=== PATIENT | male | born 1955 | race Caucasian/White ===

== ENCOUNTER → 2020-01-28 17:17 | Outpatient (CLI) | payer BC, SELFPAY ==
[2019-12-06 14:24] VITALS: BMI 40.4
== END ==
PROVIDERS: PCP Family Medicine; Referring Provider Family Medicine; Visit Provider Family Medicine
DX: Z11.59 Encounter for screening for other viral diseases (principal)
CPT/HCPCS: 87635; C9803; U0003

== ENCOUNTER 2021-11-27 12:25 | Day surgery (SDC) | payer MEDICARE, OTHER, SELFPAY ==
[2021-11-27] MEDS: Lactated Ringers 1,000 ML 15 ML IV (12:45)
[2021-11-27 12:59] VITALS: BP 136/79; PULSE 54; RESP 19; TEMP 36.6; O2SAT 95; BMI 40.0
--- NOTE | 2021-11-27 13:05 | HP.PCM_ITS ---
HPI - General General Date of Admission: 11/27/21 Date of Service: 11/27/21 Chief Complaint: Screening colonoscopy HPI Narrative AUDRA HAINES, is a 66 M who presents today for screening colonoscopy. He has a past medical history of acute on chronic diverticulitis, sleep apnea, obesity, BPH, diabetes. He arrives here for a colonoscopy. He is not having any prior bowels. He does not have any abdominal pain. He is not any cramping. He denies any chest pain or shortness of breath. He has normal bowel movement every day. All other 16 review of systems are negative except as pertinent positive mentioned HPI. [facility] Medical History Afib Arthritis Back pain Cancer Cardiology follow-up encounter CPAP (continuous positive airway pressure) dependence Diabetes Dietary restriction history of a heart ablation History of cardioversion History of diverticulitis History of echocardiogram History of gout History of stress test Hypertension Loss of hearing Non-smoker Personal history of other malignant neoplasm of kidney Pulmonary nodule less than 1 cm in diameter with low risk for malignant neoplasm Pure hypercholesterolemia, unspecified SOB (shortness of breath) Wears dentures Wears glasses Home Medications doxazosin 4 mg tablet 4 mg PO QHS 09/15/15 [History Last Taken 09/14/15 22:00] glimepiride 1 mg tablet 1 mg PO DAILY 09/15/15 [History Last Taken 09/12/15 1 MG] multivitamin 1 ea PO DAILY 09/15/15 [History Last Taken 09/15/15 08:00] tramadol 50 mg tablet 100 mg PO Q6H PRN PRN Pain 09/15/15 [History Last Taken Unknown] amlodipine 5 mg-benazepril 20 mg capsule 1 cap PO DAILY 12/06/19 [History Last Taken 11/27/21] apixaban 5 mg tablet 5 mg PO BID 12/06/19 [History Last Taken 11/23/21] blood sugar diagnostic #10 ea 12/06/19 [History Last Taken Unknown] metoprolol tartrate 50 mg tablet 50 ea PO BID 12/06/19 [History Last Taken 11/27/21] metformin 500 mg tablet 500 mg PO BID 08/31/21 [History Last Taken Unknown] albuterol 90 mcg/actuation aerosol inhaler 90 mcg inhalation PRN PRN SOB 11/20/21 [History Last Taken Unknown] loratadine 10 mg tablet (Claritin) 10 mg PO DAILY 11/20/21 [History Last Taken Unknown] Allergy/AdvReac Type Severity Reaction Status Date / Time ciprofloxacin [From Cipro] Allergy Severe Other Verified 11/27/21 12:57 ciprofloxacin HCl Allergy Severe Other Verified 11/27/21 12:57 [From Cipro] clarithromycin [From Biaxin] Allergy Severe Other Verified 11/27/21 12:57 lisinopril Allergy Severe Other Verified 11/27/21 12:57 metronidazole Allergy Severe Other Verified 11/27/21 12:57 Family History (Updated 08/31/21 @ 13:46 by Coreen Bailey) Mother Hypertension Father Leukemia Sister Multiple sclerosis Surgical History History of colonoscopy History of left nephrectomy History of partial adrenalectomy History of prior ablation treatment History of transurethral resection of prostate Social History Smoking Status: Never smoker alcohol intake: never ROS Review of Systems ROS Unobtainable: other Constitutional Constitutional: Denies fatigue, fever(s), poor appetite, weight gain or weight loss ENT HEENT: Denies mouth lesions Cardiovascular Cardiovascular: Denies abdominal bloating, abdominal edema or abdominal pain Respiratory/Chest Respiratory/Chest: Denies change in mental status, change in phlegm color, chest congestion or chest tightness Gastrointestinal Gastrointestinal: Denies belching, bloating, change in bowel habits, change in stool character, chewing difficulty, coffee ground emesis, constipation, cramping, diarrhea, dyspepsia, dysphagia, early satiety, excessive flatus, fecal incontinence, heartburn, hematemesis, hematochezia, hemorrhoids, loose stools, melena, nausea, odynophagia, rectal bleeding, tenesmus, vomiting or weight changes Genitourinary Genitourinary: Denies abdominal discomfort, burning urination or itching Musculoskeletal Musculoskeletal: Reports as per HPI; Denies muscle weakness or myalgias Integumentary Integumentary: Denies jaundice Neurologic Neurologic: Denies lack of coordination or weakness Psychiatric Psychiatric: Denies confusion, depression, memory loss, mood swings, paranoia or suicidal ideation Endocrine Endocrinology: Denies systems reviewed and no addt'l complaints, except as documented Hematologic/Lymphatic Hematologic/Lymphatic: Denies anemia, easy bleeding, easy bruising or lymphadenopathy Allergic/Immunologic Allergic/Immunologic: Denies systems reviewed and no addt'l complaints, except as documented Vital Signs Vital Signs Vital Signs: 11/27/21 12:59 11/27/21 12:59 Temperature 97.8 F Temperature Source Temporal Pulse Rate 54 L Respiratory Rate 19 H Respiratory Pattern Normal Blood Pressure 136/79 H Blood Pressure Mean 98 Blood Pressure Source Monitor Blood Pressure Position Semi-Fowlers Blood Pressure Location Right Arm Pulse Ox 95 Oxygen Delivery Method Room Air Weight Weight: 303 lb 9.224 oz Body Mass Index (BMI) 40.0 Physical Exam Const alert, oriented x3, no apparent distress, healthy appearing and well nourished General Appearance: cooperative, comfortable, well kempt and well developed Orientation / Consciousness: awake and oriented to person HEENT Head and Scalp: normocephalic and atraumatic Face and Sinus: normal facial exam Mouth: oral and palatal mucosa normal Eyes General Eye: normal appearance of both eyes Neck full ROM Lymph Lymphatic: no lymphadenopathy noted Chest inspection of chest normal Resp normal respiratory effort and no use of accessory muscles Cardio regular rate and regular rhythm GI normal to inspection, nondistended, normoactive bowel sounds, soft to palpation, non-tender, non-distended and no masses Auscultation: normoactive bowel sounds Palpation: soft Percussion: normal to percussion Rectal Exam: visual inspection normal and normal sphincter tone no CVA tenderness Back/Spine no CVA tenderness and normal ROM Extremity normal to inspection Peripheral Pulses: Yes pulses 2+ throughout Skin no rashes or lesions noted General Skin Exam: no breakdown, elasticity normal and turgor normal Neuro oriented x3 Motor Exam: strength 5/5 throughout Psych mental status grossly normal Appearance: grossly normal Attitude: calm Activity / Motor Behavior: appropriate eye contact Speech: normal speech Thought Process: normal thought process Thought Content: normal thought content Attention / Concentration: attention grossly intact Memory / Cognition: memory grossly intact Insight: insight good Judgement: judgement good Assessment & Plan Assessment/Plan (1) Encounter for screening for malignant neoplasm of colon: PLAN: He was explained alternatives, risk, benefits including not withstanding bleeding, infection, sepsis, perforation, need for emergent surgery . He will have an ASA of 3.
--- NOTE | 2021-11-27 13:30 | COLBX_PTH ---
PATIENT: AUDRA HAINES LOC: EN U#:[id number] AGE/SX: 66/M ROOM: RE11/27/[address]: Dr. Jayden Andersen DO : 1955 BED: DIS: 11/27/2021 SPEC #: [id number] RECD: 11/27/21 15:16 STATUS: ELISE LEEKendra #: [id number] OUMOU: 11/27/21 13:[address]: Jayden Andersen DEPT: SURGICAL PATHOLOGY RECD BY: Orin Benjamin ENTERED: 11/28/21 07:07 SP TYPE: COLON BX OTHR DR: Dr. Delbert Castro DO Tissues: A - Sigmoid colon biopsy B - Cecum, NOS C - SPLENIC FLEXURE Procedures: Surgery Specimen Level IV HEADER OPERATION: Colonoscopy ? open access (MAC) PRE-OP DIAGNOSIS: Screening TISSUE SUBMITTED: A - Sigmoid colon polyp x3, B - Cecal biopsy colitis, C - Splenic flexure polyps x2 MICROSCOPIC DIAGNOSIS A. Sigmoid colon polyp, biopsy: Fragments of tubular adenoma. B. Cecum, biopsy: Focal acute colitis. C. Colonic polyp at splenic flexure, biopsy: Tubular adenoma. AM:maylin 11/29/2021 MICROSCOPIC DESCRIPTION Slides are reviewed. GROSS DESCRIPTION A - Received in fixative is one container labeled with the patient's name and designated sigmoid colon polyps x3. The specimen consists of multiple irregular fragments of light simms soft tissue that in aggregate measure 1.5 x 1 x 0.3 cm. The specimen is totally submitted in one cassette. B - Received in fixative is one container labeled with the patient's name and designated cecal biopsy colitis. The specimen consists of three irregular fragments of light simms soft tissue that in aggregate measure 1 x 0.2 x 0.1 cm. The specimen is totally submitted in one cassette. C - Received in fixative is one container labeled with the patient's name and designated splenic flexure polyp x2. The specimen consists of two irregular fragments of light simms soft tissue that in aggregate measure 0.6 x 0.3 x 0.1 cm. The specimen is totally submitted in one cassette. / BRADLY:maylin 11/28/2021 TC:2 CPT: 85831 x3
[2021-11-27 14:25] VITALS: BP 104/66; BP 136/79; PULSE 57; RESP 14; TEMP 36.8; O2SAT 91
--- NOTE | 2021-11-27 14:25 | OP.CCLET_ITS ---
01/31/2022 Delbert Castro Re : Colonoscopy procedure for Darian Willson Cindyr Gloria This procedure was performed on Saturday, November 27, 2021. My impressions and recommendations are as follows: Impressions : - One 5 mm polyp in the sigmoid colon at the splenic flexure in the transverse colon, removed with a hot snare. Resected and retrieved. - Congested mucosa in the cecum. Biopsied. Recommendations : - Discharge patient to home. - Resume previous diet. - Continue present medications. - Await pathology results. - Repeat colonoscopy in 3 years for surveillance. My findings are described in the full procedure note, which is enclosed. If I can be of further assistance, please feel free to contact me at . Sincerely, Jayden Friend, 11/27/2021 2:24:46 PM This report has been signed electronically.
--- NOTE | 2021-11-27 14:25 | OP.COLON_ITS ---
Patient Name: Darian Willson Procedure Date: 11/27/2021 1:49 PM Date of : 1955 Age: 66 Procedure: Colonoscopy Indications: Follow-up for history of adenomatous polyps in the colon Providers: Jayden Andersen DO Medicines: Monitored Anesthesia Care Patient Profile: This is a 66 year old male. Refer to note in patient chart for documentation of history and physical. Last Colonoscopy: 3 years ago. Complications: No immediate complications. Procedure: Pre-Anesthesia Assessment: - Prior to the procedure, a History and Physical was performed, and patient medications and allergies were reviewed. The patient is competent. The risks and benefits of the procedure and the sedation options and risks were discussed with the patient. All questions were answered and informed consent was obtained. Patient identification and proposed procedure were verified by the physician in the pre-procedure area. Mental Status Examination: alert and oriented. Airway Examination: normal oropharyngeal airway and neck mobility. Respiratory Examination: clear to auscultation. CV Examination: normal. Prophylactic Antibiotics: The patient does not require prophylactic antibiotics. Prior Anticoagulants: The patient has taken no previous anticoagulant or antiplatelet agents. ASA Grade Assessment: II - A patient with mild systemic disease. After reviewing the risks and benefits, the patient was deemed in satisfactory condition to undergo the procedure. The anesthesia plan was to use moderate sedation / analgesia (conscious sedation). Immediately prior to administration of medications, the patient was re-assessed for adequacy to receive sedatives. The heart rate, respiratory rate, oxygen saturations, blood pressure, adequacy of pulmonary ventilation, and response to care were monitored throughout the procedure. The physical status of the patient was re-assessed after the procedure. After I obtained informed consent, the scope was passed under direct vision. Throughout the procedure, the patient's blood pressure, pulse, and oxygen saturations were monitored continuously. The Colonoscope was introduced through the anus and advanced to the cecum, identified by appendiceal orifice and ileocecal valve. The colonoscopy was performed without difficulty. The patient tolerated the procedure well. The quality of the bowel preparation was adequate. Scope In: 1:59:35 PM Scope Withdrawal Time 0 hours 7 minutes 13 seconds Scope Out: 2:18:38 PM Total Procedure Duration Time 0 hours 19 minutes 3 seconds Findings: The perianal and digital rectal examinations were normal. A 5 mm polyp was found in the sigmoid colon splenic flexure transverse colon. The polyp was sessile. The polyp was removed with a hot snare. Resection and retrieval were complete. Verification of patient identification for the specimen was done. Estimated blood loss was minimal. An area of mildly congested mucosa was found in the cecum. Biopsies were taken with a cold forceps for histology. Verification of patient identification for the specimen was done. Estimated blood loss was minimal. Impression: - One 5 mm polyp in the sigmoid colon at the splenic flexure in the transverse colon, removed with a hot snare. Resected and retrieved. - Congested mucosa in the cecum. Biopsied. Recommendation: - Discharge patient to home. - Resume previous diet. - Continue present medications. - Await pathology results. - Repeat colonoscopy in 3 years for surveillance. Procedure Code(s): --- Professional --- 17418, Colonoscopy, flexible; with removal of tumor(s), polyp(s), or other lesion(s) by snare technique 64436, 59, Colonoscopy, flexible; with biopsy, single or multiple CPT copyright 2017 [employer]. All rights reserved. The codes documented in this report are preliminary and upon business intelligence analyst review may be revised to meet current compliance requirements. Jayden Andersen DO 11/27/2021 2:24:46 PM This report has been signed electronically. Number of Addenda: 1 Note Initiated On: 11/27/2021 1:49 PM Addendum Number: 1 Addendum Date: 01/31/2022 6:35:33 AM MAC was used as sedation for this procedure. Jayden Andersen DO 01/31/2022 6:35:37 AM This report has been signed electronically.
[2021-11-27 14:30] VITALS: BP 107/68; BP 136/79; PULSE 54; RESP 16; O2SAT 96
[2021-11-27 14:35] VITALS: BP 115/71; BP 136/79; PULSE 54; RESP 106; O2SAT 97
[2021-11-27 14:40] VITALS: BP 100/69; BP 136/79; PULSE 52; RESP 16; TEMP 36.7; O2SAT 94
[2021-11-27 14:57] VITALS: BP 136/79
[2021-11-27 15:16] LABS: Bedside Glucose 163 mg/dL (74-106)
== END 2021-11-27 14:58 | disposition home or self-care (01) ==
LOC: EN 12:32 → AC 12:33
PROVIDERS: PCP Family Medicine; Referring Provider Family Medicine; Visit Provider Internal Medicine Gastroenterology
PROC: 0DJD8ZZ Inspection of Lower Intestinal Tract, Via Natural or Artificial Opening Endoscopic (ICD-10-PCS; CPT 45378; principal; 2021-11-27 13:25)
DX: Z12.11 Encounter for screening for malignant neoplasm of colon (principal); E11.9 Type 2 diabetes mellitus without complications; K52.9 Noninfective gastroenteritis and colitis, unspecified; D12.3 Benign neoplasm of transverse colon; D12.5 Benign neoplasm of sigmoid colon; K63.89 Other specified diseases of intestine; I10 Essential (primary) hypertension; G47.30 Sleep apnea, unspecified; Z79.84 Long term (current) use of oral hypoglycemic drugs; Z79.899 Other long term (current) drug therapy
CPT/HCPCS: 45380; 45385; 82962; 88305; J7120; J2405

== ENCOUNTER 2021-12-07 15:54 | Emergency (ER) | payer MEDICARE, OTHER, SELFPAY ==
[2021-12-07 15:56] VITALS: BP 166/93; PULSE 66; RESP 14; TEMP 35.7; O2SAT 97; BMI 41.1
[2021-12-07 16:11] VITALS: BP 147/75; PULSE 61; RESP 16; O2SAT 96
--- NOTE | 2021-12-07 16:11 | EKG12_ITS ---
Test Reason : SOB Blood Pressure : / mmHG Vent. Rate : 061 BPM Atrial Rate : 061 BPM P-R Int : 266 ms QRS Dur : 158 ms QT Int : 462 ms P-R-T Axes : 094 102 032 degrees QTc Int : 465 ms Suspect arm lead reversal, interpretation assumes no reversal Sinus rhythm with 1st degree A-V block with occasional Premature ventricular complexes Right bundle branch block Abnormal ECG Confirmed by ISACC PICHARDO, ZACK ([id number]), state editor FAITH LIZAMA ([id number]) on 12/10/2021 10:17:14 AM Referred By: Confirmed By:ZACK DEXTER MD
--- NOTE | 2021-12-07 16:25 | EDS_ITS ---
HPI History of Present Illness Chief Complaint: Seizure Detail of Chief Complaint: Patient had a syncopal episode not a seizure Informant: patient and spouse/S.O. Onset/Context/Timing Onset: Today (Prior to presentation) Context: Sudden Onset Timing: Intermittent Quality: Unresponsiveness with snoring and myoclonic jerk left upper extremity Location: Patient's vehicle Current Severity: Sweaty otherwise nothing Maximum Severity: Single episode 4 minutes with no postictal state Worsened by: Per HPI narrative Relieved by: Nothing Associated Symptoms Associated Symptoms: Nausea, feeling warm, diaphoretic Narrative Narrative: Patient is a 66-year-old male with history of obstructive sleep apnea, hypertension, diabetes, hypercholesterolemia, atrial fibrillation status post ablation who presents after reported seizure activity. After speaking with spouse it was determined that he had no abnormal motor activity. Patient recalls developing back pain. He states he did not feel well. He states he began to walk towards the truck. He got into the passenger side of the truck. His spouse packed the merchandise that she purchased into the back of the vehicle. She states his head then became limp he had snoring breathing. She thought he may be hypoglycemic since he is diabetic. She went to hand him lemonade. Apparently his left arm moved and spilled the lemonade. Patient denies headache, biting his tongue, incontinence of urine or stool. He has no known history of seizures. According to spouse he was not postictal. Patient does remember feeling warm and becoming very sweaty. Spouse does not recall whether he was pale or not. His vision became black. He does not recall anything else. Prior similar symptoms: No Recent Illness/Hospitalization: No PFSH PFSH Medical History Afib Arthritis Back pain Cancer Cardiology follow-up encounter CPAP (continuous positive airway pressure) dependence Diabetes Dietary restriction history of a heart ablation History of cardioversion History of diverticulitis History of echocardiogram History of gout History of stress test Hypertension Loss of hearing Non-smoker Personal history of other malignant neoplasm of kidney Pulmonary nodule less than 1 cm in diameter with low risk for malignant neoplasm Pure hypercholesterolemia, unspecified SOB (shortness of breath) Wears dentures Wears glasses Home Medications doxazosin 4 mg tablet 4 mg PO QHS 09/15/15 [History Last Taken 09/14/15 22:00] glimepiride 1 mg tablet 1 mg PO DAILY 09/15/15 [History Last Taken 09/12/15 1 MG] multivitamin 1 ea PO DAILY 09/15/15 [History Last Taken 09/15/15 08:00] tramadol 50 mg tablet 100 mg PO Q6H PRN PRN Pain 09/15/15 [History Last Taken Unknown] amlodipine 5 mg-benazepril 20 mg capsule 1 cap PO DAILY 12/06/19 [History Last Taken 11/27/21] apixaban 5 mg tablet 5 mg PO BID 12/06/19 [History Last Taken 11/23/21] blood sugar diagnostic #10 ea 12/06/19 [History Last Taken Unknown] metoprolol tartrate 50 mg tablet 50 ea PO BID 12/06/19 [History Last Taken 11/27/21] metformin 500 mg tablet 500 mg PO BID 08/31/21 [History Last Taken Unknown] albuterol 90 mcg/actuation aerosol inhaler 90 mcg inhalation PRN PRN SOB 11/20/21 [History Last Taken Unknown] loratadine 10 mg tablet (Claritin) 10 mg PO DAILY 11/20/21 [History Last Taken Unknown] Allergy/AdvReac Type Severity Reaction Status Date / Time ciprofloxacin [From Cipro] Allergy Severe Other Verified 12/07/21 15:56 ciprofloxacin HCl Allergy Severe Other Verified 12/07/21 15:56 [From Cipro] clarithromycin [From Biaxin] Allergy Severe Other Verified 12/07/21 15:56 lisinopril Allergy Severe Other Verified 12/07/21 15:56 metronidazole Allergy Severe Other Verified 12/07/21 15:56 Family History Mother Hypertension Father Leukemia Sister Multiple sclerosis Surgical History History of colonoscopy History of left nephrectomy History of partial adrenalectomy History of prior ablation treatment History of transurethral resection of prostate Social History (Updated 12/07/21 @ 16:[address] Lopez James MD) household members: spouse Smoking Status: Never smoker alcohol intake: never substance use type: does not use ROS ROS ED Constitutional Constitutional ED: Denies chills, fever(s), subjective, sweats or weight loss Eyes Eyes: Denies blurry vision, change in vision or diplopia ENT ENT ED: Denies ear pain, rhinorrhea or sore throat Cardiovascular Cardiovascular: Reports chest pain and other Details: States upon awakening he had chest heaviness. He presently does not have chest heaviness. ; Denies orthopnea, palpitations, paroxysmal nocturnal dyspnea or racing heartbeat Respiratory/Chest Respiratory/Chest: Denies cough, dyspnea, dyspnea on exertion, orthopnea or paroxysmal nocturnal dyspnea Gastrointestinal Gastrointestinal: Reports nausea; Denies abdominal pain, constipation, diarrhea, melena or vomiting Genitourinary Genitourinary ED: Reports other Details: Patient reports history of benign prostatic hypertrophy. ; Denies dysuria, hematuria or urinary frequency Musculoskeletal Musculoskeletal: Reports back pain; Denies arthralgias, myalgias or neck pain Integumentary Denies rash Neurologic Neurologic: Denies headache(s), paresthesias or weakness Psychiatric Psychiatric: Denies anxiety or depression Endocrine Endocrinology: Denies cold intolerance, heat intolerance, polydipsia, polyphagia or polyuria Hematologic/Lymphatic Hematologic/Lymphatic: Reports easy bruising and other Details: Patient is on anticoagulant, Eliquis ; Denies easy bleeding EXAM Physical Exam Const Vital Signs: 12/07/21 15:56 12/07/21 16:06 12/07/21 16:11 Temperature 96.3 F L Temperature Source Temporal Pulse Rate 66 61 Respiratory Rate 14 16 Respiratory Effort Normal Blood Pressure 166/93 H 147/75 H Blood Pressure Mean 117 99 Pulse Ox 97 96 Oxygen Delivery Method Room Air Room Air 12/07/21 18:00 Temperature Temperature Source Pulse Rate 66 Respiratory Rate 16 Respiratory Effort Blood Pressure 141/84 H Blood Pressure Mean 103 Pulse Ox 95 Oxygen Delivery Method Room Air Positive well nourished, well developed and obese; Negative for cachectic, contractures or unkempt General Appearance ED: well developed, diaphoretic and NAD; Negative for unkempt, cachectic, contractures, cyanotic or pallor Nutritional Appearance: obese; Negative for cachectic HEENT Reports dry mucous membranes HEENT Narrative: Head is a traumatic normocephalic. Ears normal. TMs normal. Nares patent. Uvula midline. There is no erythema or exudate posterior pharynx. Mouth ED: Yes dry mucous membranes Mouth: dry mucous membranes Eyes PERRL and EOMs intact bilaterally General Eye ED: Negative for pale conjunctiva or scleral icterus Neck no lymphadenopathy, supple and no JVD Resp normal respiratory effort and clear to auscultation bilaterally Cardio regular rate, regular rhythm, S1 normal heart sound, S2 normal heart sound and no murmurs Palpation: Negative for palpable S3 or palpable S4 GI normal to inspection, nondistended, normoactive bowel sounds, non-tender, non- distended and no masses; Negative for hepatosplenomegaly Back/Spine no CVA tenderness Cervical Spine: Negative for cervical spine tenderness Thoracic Spine / Upper Back: Negative for thoracic spinal tenderness Extremity normal to inspection Extremity Narrative: Radial, DP and PT pulses palpable and symmetric General Extremety ED: Negative for edema or tenderness General Extremity: Negative for edema Neuro oriented x3, CN's II-XII intact bilaterally and no sensory deficits noted Neuro Narrative: There is no clonus or Babinski sign. There is no dysmetria. Sensorium / Orientation: alert Motor Exam: strength 5/5 throughout Psych Appearance: Negative for unkempt Skin no rashes or lesions noted, no wounds and skin turgor normal Skin Narrative: Patient is presently sweaty General Skin Exam: Negative for jaundice or pallor MDM MDM MDM Narrative Medical decision making narrative: Suspect patient had vasovagal episode. Because he complained of chest pain and has multiple risk factor cardiac will obtain EKG, troponin and 2-hour troponin. This may also be related to his obstructive sleep apnea. We will obtain CBC to rule out anemia. Basic metabolic panel to assess glucose and renal function. Patient is hemodynamically stable. Has had no dysrhythmia during his stay. Lab Data Attestation: I reviewed the patient's lab results. Lab results narrative: Electrolyte panel is unremarkable with a normal GFR. First troponin is 9 and second troponin is 10 which are both normal and delta is less than 20. Therefore patient be discharged home suspect patient had a vasovagal syncopal episode with collapse. Labs: Laboratory Results - last 24 hr 12/07/21 12/07/21 16:20 18:25 Sodium 138 Potassium 4.0 Chloride 105 Carbon Dioxide 27.0 Anion Gap 6 BUN 10 Creatinine 1.17 Estim Creat Clear Calc 70.19 Est GFR (MDRD) Af Amer 80 Est GFR (MDRD) Non-Af 66 BUN/Creatinine Ratio 8.5 L Glucose 161 H Calcium 8.9 Troponin I High Sens 9 10 EKG Initial EKG: Attestation: I personally reviewed and interpreted this EKG as follows: Interpretation: Sinus Rhythm (Ventricular rate is 61. There is premature beat noted. There is evidence of first-degree heart block with a OR interval of 206 6 ms. QRS duration is prolonged at 158 ms. QT duration is 462 ms. [place] is to the right. There is evidence of a right bundle branch block.) Discharge Plan Triage Chief Complaint: Seizure ED Provider: Lopez James Dx/Rx/DC Orders Clinical Impression: Syncope and collapse, History of type 2 diabetes mellitus, History of sleep apnea Instructions: Understanding Vasovagal Syncope, ED Fainting, Uncertain Cause Prescriptions: No Action apixaban 5 mg tablet 5 mg PO BID Label Comments: Take 1 tablet by mouth twice daily. metoprolol tartrate 50 mg tablet 50 ea PO BID Label Comments: TAKE 1 TABLET TWICE DAILY amlodipine-benazepril 5-20 mg capsule 1 cap PO DAILY (DME) blood sugar diagnostic Strip See Rx Instructions .ROUTE .MEDSUPPLY Qty: 10 Rx Instructions: As directed metformin 500 mg tablet 500 mg PO BID multivitamin 1 EACH tablet 1 ea PO DAILY Label Comments: vitamin tramadol 50 MG tablet 100 mg PO Q6H PRN PRN (Reason: Pain) Label Comments: pain glimepiride 1 MG tablet 1 mg PO DAILY Label Comments: diabetic medication doxazosin 4 MG tablet 4 mg PO QHS Label Comments: heart/blood pressure albuterol 90 mcg/actuation Aerosol 90 mcg INHALATION PRN PRN (Reason: SOB) loratadine [Claritin] 10 mg Tablet 10 mg PO DAILY Primary Care Provider: Delbert Castro Referrals: Delbert Castro DO [Primary Care Provider] - 3-5 Days Disposition Disposition: Home, Self Care
[2021-12-07 17:17] LABS: Anion Gap 6 (5-15); BUN 10 mg/dL (7-18); BUN/Creat Ratio 8.5 RATIO (10-20); Calcium,Total 8.9 mg/dL (8.5-10.1); Chloride 105 mmol/L (98-107); Creatinine, Serum 1.17 mg/dL (0.70-1.30); EST Glomerular Filtration Rate 66 mL/min (>60); Est Glom Filt Rate - Afr Amer 80 mL/min (>60); Estimated Creatinine Clearance 70.19 ml/min; Glucose 161 mg/dL (74-106); Sodium Level 138 mmol/L (136-145); Troponin-I HS 9 pg/mL (3.0-78.0)
[2021-12-07 18:00] VITALS: BP 141/84; PULSE 66; RESP 16; O2SAT 95
[2021-12-07 18:58] LABS: Troponin-I HS (w/2H Reflex) 10 pg/mL (3.0-78.0)
[2021-12-07 19:34] VITALS: BP 141/95; PULSE 94; RESP 18; O2SAT 96
[2021-12-07 20:33] LABS: Reflex Troponin-HS? (from REC) Y
== END 2021-12-07 19:41 | disposition home or self-care (01) ==
PROVIDERS: Emergency Provider Emergency Medicine; PCP Family Medicine; Visit Provider Emergency Medicine
DX: R55 Syncope and collapse (principal); G47.33 Obstructive sleep apnea (adult) (pediatric); E66.9 Obesity, unspecified
CPT/HCPCS: 80048; 84484; 93005; 99285; A4216

== ENCOUNTER 2022-04-29 15:40 | Emergency (ER) | payer MEDICARE, OTHER, SELFPAY ==
[2022-04-29 15:41] VITALS: BP 175/108; PULSE 68; RESP 16; TEMP 36.6; O2SAT 98; BMI 41.1
--- NOTE | 2022-04-29 16:35 | EKG12_ITS ---
Test Reason : SYNCOPE Blood Pressure : / mmHG Vent. Rate : 067 BPM Atrial Rate : 067 BPM P-R Int : 274 ms QRS Dur : 164 ms QT Int : 442 ms P-R-T Axes : 098 102 034 degrees QTc Int : 467 ms Suspect arm lead reversal, interpretation assumes no reversal Sinus rhythm with 1st degree A-V block Right bundle branch block Abnormal ECG Consider repeat ECG Confirmed by ISACC PICHARDO, ZACK ([id number]), medical editor FAITH LIZAMA [id number]) on 05/01/2022 9:26:38 AM Referred By: YURIDIA/CECE Confirmed By:ZACK DEXTER MD
--- NOTE | 2022-04-29 17:02 | EDS_ITS ---
HPI <ERROL Johnson - Last Filed: 04/29/22 22:28> History of Present Illness Chief Complaint: Syncope Narrative Narrative: Patient presents today after a syncopal episode that occurred earlier this afternoon. Patient states he went to lay back down in bed for a nap and while he was laying down his ears began to bring and he felt like he had tunnel vision. He got up and went to the bathroom to rinse his face off and the feeling went away. He went to lay back down and next thing he knew his was trying to help him get up off the floor. There was no seizure-like activity. Patient states this has happened before in late November 2021 where he became sweaty and passed out. He was told this was vasovagal syncope. He did have an MRI and EEG performed after this event because he had concerns he had a seizure and this work-up came back negative. Patient has a history of diabetes mellitus, hypertension, hypercholesterolemia, obstructive sleep apnea, and A. fib post ablation. He denies chest pain, shortness of breath, head/neck pain, fever, and recent illness. [facility] <ERROL Johnson - Last Filed: 04/29/22 22:28> [facility] Medical History Afib Arthritis Back pain Cancer Cardiology follow-up encounter CPAP (continuous positive airway pressure) dependence Diabetes Dietary restriction history of a heart ablation History of cardioversion History of diverticulitis History of echocardiogram History of gout History of stress test Hypertension Loss of hearing Non-smoker Personal history of other malignant neoplasm of kidney Pulmonary nodule less than 1 cm in diameter with low risk for malignant neoplasm Pure hypercholesterolemia, unspecified SOB (shortness of breath) Wears dentures Wears glasses Home Medications doxazosin 4 mg tablet 4 mg PO QHS 09/15/15 [History Last Taken 09/14/15 22:00] glimepiride 1 mg tablet 1 mg PO DAILY 09/15/15 [History Last Taken 09/12/15 1 MG] multivitamin 1 ea PO DAILY 09/15/15 [History Last Taken 09/15/15 08:00] amlodipine 5 mg-benazepril 20 mg capsule 1 cap PO DAILY 12/06/19 [History Last Taken 11/27/21] apixaban 5 mg tablet 5 mg PO BID 12/06/19 [History Last Taken 11/23/21] blood sugar diagnostic #10 ea 12/06/19 [History Last Taken Unknown] metoprolol tartrate 50 mg tablet 50 ea PO BID 12/06/19 [History Last Taken 11/27/21] metformin 500 mg tablet 500 mg PO BID 08/31/21 [History Last Taken Unknown] albuterol 90 mcg/actuation aerosol inhaler 90 mcg inhalation PRN PRN SOB 11/20/21 [History Last Taken Unknown] atorvastatin 20 mg tablet 20 mg PO QHS 04/30/22 [History Last Taken Unknown] Allergy/AdvReac Type Severity Reaction Status Date / Time ciprofloxacin [From Cipro] Allergy Severe Other Verified 04/29/22 15:42 ciprofloxacin HCl Allergy Severe Other Verified 04/29/22 15:42 [From Cipro] clarithromycin [From Biaxin] Allergy Severe Other Verified 04/29/22 15:42 lisinopril Allergy Severe Other Verified 04/29/22 15:42 metronidazole Allergy Severe Other Verified 04/29/22 15:42 Family History Mother Hypertension Father Leukemia Sister Multiple sclerosis Surgical History History of colonoscopy History of left nephrectomy History of partial adrenalectomy History of prior ablation treatment History of transurethral resection of prostate Social History household members: spouse Smoking Status: Never smoker alcohol intake: never substance use type: does not use ROS <ERROL Johnson - Last Filed: 04/29/22 22:28> ROS ED Constitutional Constitutional ED: Denies chills, fever(s) or sweats Eyes Eyes: Denies blurry vision, change in vision or diplopia ENT ENT ED: Denies rhinorrhea or sore throat Cardiovascular Cardiovascular: Denies chest pain, palpitations or racing heartbeat Respiratory/Chest Respiratory/Chest: Denies cough, dyspnea or dyspnea on exertion Gastrointestinal Gastrointestinal: Denies abdominal pain, diarrhea, nausea or vomiting Genitourinary Genitourinary ED: Denies dysuria, hematuria or urinary frequency Musculoskeletal Musculoskeletal: Denies arthralgias, back pain or myalgias Integumentary Denies abscess, Abrasions or rash Neurologic Neurologic: Denies headache(s), paresthesias or weakness Psychiatric Psychiatric: Denies anxiety, depression or suicidal ideation Allergic/Immunologic Allergic/Immunologic ED: Denies mouth swelling, tongue swelling or urticaria EXAM <ERROL Johnson - Last Filed: 04/29/22 22:28> Physical Exam Const Vital Signs: 04/29/22 15:41 04/29/22 17:36 Temperature 97.8 F Temperature Source Temporal Pulse Rate 68 Pulse Rate [Lying] 63 Pulse Rate [Sitting (for 1 minute prior to obtaining)] 69 Pulse Rate [Standing (for 1 minute prior to obtaining)] 68 Respiratory Rate 16 Blood Pressure 175/108 H Blood Pressure [Lying] 168/86 H Blood Pressure [Sitting (for 1 minute prior to obtaining)] 157/87 H Blood Pressure [Standing (for 1 minute prior to obtaining)] 162/88 H Blood Pressure Mean 130 Blood Pressure Mean [Lying] 113 Blood Pressure Mean [Sitting (for 1 minute prior to obtaining)] 110 Blood Pressure Mean [Standing (for 1 minute prior to obtaining)] 112 Pulse Ox 98 Oxygen Delivery Method Room Air Positive well nourished and well developed General Appearance ED: well developed and NAD HEENT Reports moist mucous membranes Eyes PERRL and EOMs intact bilaterally Neck no lymphadenopathy and supple Chest Wall inspection of chest normal and palpation of chest normal Resp normal respiratory effort and clear to auscultation bilaterally Cardio regular rate, regular rhythm and no murmurs GI non-tender, non-distended and no masses Palpation: soft Extremity normal to inspection Neuro oriented x3, CN's II-XII intact bilaterally and no sensory deficits noted Sensorium / Orientation: alert Motor Exam: strength 5/5 throughout Psych mental status grossly normal Skin no rashes or lesions noted, no wounds and skin turgor normal <Dr. Vidya Mills DO - Last Filed: 05/02/22 07:47> Physical Exam Const Vital Signs: 04/29/22 15:41 04/29/22 17:36 Temperature 97.8 F Temperature Source Temporal Pulse Rate 68 Pulse Rate [Lying] 63 Pulse Rate [Sitting (for 1 minute prior to obtaining)] 69 Pulse Rate [Standing (for 1 minute prior to obtaining)] 68 Respiratory Rate 16 Blood Pressure 175/108 H Blood Pressure [Lying] 168/86 H Blood Pressure [Sitting (for 1 minute prior to obtaining)] 157/87 H Blood Pressure [Standing (for 1 minute prior to obtaining)] 162/88 H Blood Pressure Mean 130 Blood Pressure Mean [Lying] 113 Blood Pressure Mean [Sitting (for 1 minute prior to obtaining)] 110 Blood Pressure Mean [Standing (for 1 minute prior to obtaining)] 112 Pulse Ox 98 Oxygen Delivery Method Room Air [facility] <ERROL Johnson - Last Filed: 04/29/22 22:28> [facility] Narrative Medical decision making narrative: Patient presents today after syncopal episode. This is not the first time this has happened and he has been evaluated for this by his neurologist and feed and farm management adviser. He has had an MRI and EEG to rule out seizure disorder. His work-ups have come back negative. Patient states his feed and farm management adviser will be putting him on a Holter monitor next week. I think this is a good idea to rule out potential arrhythmia. I think patient's syncope could likely be vasovagal. Patient is nontoxic-appearing, he is in no acute distress. I am comfortable with him discharging home and following up with feed and farm management adviser. Patient is comfortable with plan. Lab Data Attestation: I reviewed the patient's lab results. Lab results narrative: Glucose 215, otherwise BMP unremarkable. CBC unremarkable. Labs: Laboratory Results - last 24 hr 04/29/22 04/29/22 04/29/22 15:47 17:20 17:20 WBC 9.4 RBC 4.71 Hgb 13.8 Hct 42.7 MCV 90.7 MCH 29.3 MCHC 32.3 RDW Std Deviation 43.6 RDW Coeff of Francy 13.0 Plt Count 200 MPV 10.8 Immature Gran % (Auto) 0.800 Neut % (Auto) 76.4 H Lymph % (Auto) 12.7 L Gilchrist % (Auto) 6.9 Eos % (Auto) 2.6 Baso % (Auto) 0.6 Absolute Neuts (auto) 7.2 Absolute Lymphs (auto) 1.20 Nucleated RBC % 0 Sodium 136 Potassium 4.0 Chloride 102 Carbon Dioxide 28.0 Anion Gap 6 BUN 12 Creatinine 1.01 Estim Creat Clear Calc 81.31 Est GFR (MDRD) Af Amer 95 Est GFR (MDRD) Non-Af 78 BUN/Creatinine Ratio 11.9 Glucose 215 H Calcium 8.7 Magnesium 2.2 Total Bilirubin 0.40 AST 16 ALT 47 Alkaline Phosphatase 84 Troponin I High Sens 13 Total Protein 7.0 Albumin 3.2 Globulin 3.8 Albumin/Globulin Ratio 0.8 L Urine Color Urine Clarity Urine pH Ur Specific [place] Urine Protein Urine Glucose (UA) Urine Ketones Urine Occult Blood Urine Nitrite Urine Bilirubin Urine Urobilinogen Ur Leukocyte Esterase Urine RBC Urine WBC Ur Squamous Epith Cells Urine Bacteria Urine Mucus POC Glucose 231 H 04/29/22 04/29/22 19:53 20:00 WBC RBC Hgb Hct MCV MCH MCHC RDW Std Deviation RDW Coeff of Francy Plt Count MPV Immature Gran % (Auto) Neut % (Auto) Lymph % (Auto) Gilchrist % (Auto) Eos % (Auto) Baso % (Auto) Absolute Neuts (auto) Absolute Lymphs (auto) Nucleated RBC % Sodium Potassium Chloride Carbon Dioxide Anion Gap BUN Creatinine Estim Creat Clear Calc Est GFR (MDRD) Af Amer Est GFR (MDRD) Non-Af BUN/Creatinine Ratio Glucose Calcium Magnesium Total Bilirubin AST ALT Alkaline Phosphatase Troponin I High Sens 13 Total Protein Albumin Globulin Albumin/Globulin Ratio Urine Color Yellow Urine Clarity Clear Urine pH 6.0 Ur Specific [place] 1.015 Urine Protein Negative Urine Glucose (UA) 250 H Urine Ketones Negative Urine Occult Blood Negative Urine Nitrite Negative Urine Bilirubin Negative Urine Urobilinogen Normal Ur Leukocyte Esterase Negative Urine RBC 0 SEEN Urine WBC 0 SEEN Ur Squamous Epith Cells 0-5 SEEN Urine Bacteria 0 SEEN Urine Mucus 0 SEEN POC Glucose Radiography Diagnostic Testing: Clinical Impression(s) from Imaging Studies Brain CT 04/29/22 17:07 IMPRESSION: There are no acute intracranial findings. Electronically Signed: Girma Clemente MD at 18:19 EST , Cervical Spine CT 04/29/22 17:07 IMPRESSION: Degenerative changes of the cervical spine. There are no acute findings. Electronically Signed: Girma Clemente MD at 18:20 EST , Chest X-Ray 04/29/22 17:45 IMPRESSION: There are no acute findings. Electronically Signed: Girma Clemente MD at 18:14 EST , Brain CT shows no acute findings, cervical spine CT shows no acute fracture. Chest x-ray shows no acute findings. These have all been reviewed and interpreted by attending ED physician. EKG Initial EKG: Attestation: I personally reviewed and interpreted this EKG as follows: Comments: [address] elevation. Sinus rhythm with first-degree AV block, right bundle branch block. This EKG has also been reviewed and interpreted by attending ED physician. Prior EKG tracings: available for review Prior: Unchanged <Dr. Vidya Mills, DO - Last Filed: 05/02/22 07:47> [facility] Lab Data Labs: Laboratory Results - last 24 hr 04/29/22 04/29/22 04/29/22 15:47 17:20 17:20 WBC 9.4 RBC 4.71 Hgb 13.8 Hct 42.7 MCV 90.7 MCH 29.3 MCHC 32.3 RDW Std Deviation 43.6 RDW Coeff of Francy 13.0 Plt Count 200 MPV 10.8 Immature Gran % (Auto) 0.800 Neut % (Auto) 76.4 H Lymph % (Auto) 12.7 L Gilchrist % (Auto) 6.9 Eos % (Auto) 2.6 Baso % (Auto) 0.6 Absolute Neuts (auto) 7.2 Absolute Lymphs (auto) 1.20 Nucleated RBC % 0 Sodium 136 Potassium 4.0 Chloride 102 Carbon Dioxide 28.0 Anion Gap 6 BUN 12 Creatinine 1.01 Estim Creat Clear Calc 81.31 Est GFR (MDRD) Af Amer 95 Est GFR (MDRD) Non-Af 78 BUN/Creatinine Ratio 11.9 Glucose 215 H Calcium 8.7 Magnesium 2.2 Total Bilirubin 0.40 AST 16 ALT 47 Alkaline Phosphatase 84 Troponin I High Sens 13 Total Protein 7.0 Albumin 3.2 Globulin 3.8 Albumin/Globulin Ratio 0.8 L Urine Color Urine Clarity Urine pH Ur Specific [place] Urine Protein Urine Glucose (UA) Urine Ketones Urine Occult Blood Urine Nitrite Urine Bilirubin Urine Urobilinogen Ur Leukocyte Esterase Urine RBC Urine WBC Ur Squamous Epith Cells Urine Bacteria Urine Mucus POC Glucose 231 H 04/29/22 04/29/22 19:53 20:00 WBC RBC Hgb Hct MCV MCH MCHC RDW Std Deviation RDW Coeff of Francy Plt Count MPV Immature Gran % (Auto) Neut % (Auto) Lymph % (Auto) Gilchrist % (Auto) Eos % (Auto) Baso % (Auto) Absolute Neuts (auto) Absolute Lymphs (auto) Nucleated RBC % Sodium Potassium Chloride Carbon Dioxide Anion Gap BUN Creatinine Estim Creat Clear Calc Est GFR (MDRD) Af Amer Est GFR (MDRD) Non-Af BUN/Creatinine Ratio Glucose Calcium Magnesium Total Bilirubin AST ALT Alkaline Phosphatase Troponin I High Sens 13 Total Protein Albumin Globulin Albumin/Globulin Ratio Urine Color Yellow Urine Clarity Clear Urine pH 6.0 Ur Specific [place] 1.015 Urine Protein Negative Urine Glucose (UA) 250 H Urine Ketones Negative Urine Occult Blood Negative Urine Nitrite Negative Urine Bilirubin Negative Urine Urobilinogen Normal Ur Leukocyte Esterase Negative Urine RBC 0 SEEN Urine WBC 0 SEEN Ur Squamous Epith Cells 0-5 SEEN Urine Bacteria 0 SEEN Urine Mucus 0 SEEN POC Glucose Radiography Diagnostic Testing: Clinical Impression(s) from Imaging Studies Brain CT 04/29/22 17:07 IMPRESSION: There are no acute intracranial findings. Electronically Signed: Girma Clemente MD at 18:19 EST , Cervical Spine CT 04/29/22 17:07 IMPRESSION: Degenerative changes of the cervical spine. There are no acute findings. Electronically Signed: Girma Clemente MD at 18:20 EST , Chest X-Ray 04/29/22 17:45 IMPRESSION: There are no acute findings. Electronically Signed: Girma Clemente MD at 18:14 EST , Treatment and Re-Evaluation Narrative: I have personally performed a face to face assessment of the patient and have reviewed the VERONA Note. I performed a substantive portion of the visit including all aspects of the following. My quach findings include: Patient is a 66-year-old male presenting after syncopal episode. Patient was laying down trying to take a nap when he felt that his ears were ringing bilaterally and to get tunnel vision. He got up to go to the bathroom and wash his face. Came back to bed and sat on the bed and then the next thing he knew he was on the floor and must of passed out. No report of any seizure-like activity. Patient has similar episode in November as well as vasovagal syncope. Patient's been concerned that he might have seizures and is actually following up with cardiology as well as neurology. He has a 30-day Holter monitor that is ordered. Patient currently denies any symptoms and feels well. He has no other complaints at this time. On exam patient is overall well-appearing. No murmur appreciated. Heart regular rate and rhythm. Does not appear fluid overloaded. Clear lungs to auscultation. Normal neurologic exam with no focal deficits. Syncope work-up initiated including EKG, delta high-sensitivity troponin, CBC, CMP and urinalysis. Work-up is largely normal. EKG shows sinus rhythm with a first- degree AV block. Patient is mildly hyperglycemic but he has a normal anion gap and I do not think this is any type of decompensated hyperglycemia. No signs of secondary infection. EKG does not show any acute ischemic process. Patient is currently anticoagulated on Eliquis so low special for pulmonary emboli. As he did not fall, hit his head and is on Eliquis a head CT is obtained as well as CT C-spine which do not show any acute process either. Patient's orthostatics are normal. I do not think he has volume depletion. Patient will be discharged home to follow-up with his feed and farm management adviser for the syncope as well as to continue with his Holter monitor. He is given return precautions. He is comfortable with this plan of care. At this time I do not think further inpatient observation would be indicated.Patient is given return precautions. Patient does not have any arrhythmia while in the emergency room. Other additions or changes: [None] Discharge Plan Triage Chief Complaint: Syncope ED Midlevel Provider: Fabiola Dexter ED Provider: Vidya Mills Dx/Rx/DC Orders Clinical Impression: Syncope and collapse Instructions: ED Fainting, Vagal Reaction Prescriptions: No Action apixaban 5 mg tablet 5 mg PO BID Label Comments: Take 1 tablet by mouth twice daily. metoprolol tartrate 50 mg tablet 50 ea PO BID Label Comments: TAKE 1 TABLET TWICE DAILY amlodipine-benazepril 5-20 mg capsule 1 cap PO DAILY (DME) blood sugar diagnostic Strip See Rx Instructions .ROUTE .MEDSUPPLY Qty: 10 Rx Instructions: As directed metformin 500 mg tablet 500 mg PO BID multivitamin 1 EACH tablet 1 ea PO DAILY Label Comments: vitamin glimepiride 1 MG tablet 1 mg PO DAILY Label Comments: diabetic medication doxazosin 4 MG tablet 4 mg PO QHS Label Comments: heart/blood pressure albuterol 90 mcg/actuation Aerosol 90 mcg INHALATION PRN PRN (Reason: SOB) atorvastatin 20 mg Tablet 20 mg PO QHS Primary Care Provider: Delbert Castro Referrals: Delbert Castro DO [Primary Care Provider] - 3-5 Days Activity Restrictions/Additional Instructions: Follow-up with feed and farm management adviser for Holter monitor. Please return for any new or worsening symptoms. Disposition Disposition: Home, Self Care Discharge Date/Time: 04/29/22 21:32
--- NOTE | 2022-04-29 17:07 | CT_ITS ---
EXAM: CT SPINE - CERVICAL WITHOUT IV REASON FOR EXAM: Male, 66 years old. NECK PAIN fall HISTORY: NECK PAIN fall Individualized dose optimization techniques were used for this CT. TECHNIQUE: Multiplanar images were obtained of the cervical spine. IV contrast was not utilized. COMPARISON: None. FINDINGS: The vertebral bodies do maintain their height. The odontoid process is intact. No pre-vertebral soft tissue swelling is seen. The intravertebral disc height is lost. There are scattered lymph nodes in the neck. There are degenerative changes of the osseous structures. There is bilateral facet arthropathy. There are scattered levels of foraminal stenosis. There are vascular calcifications. CT/Spine Cervical without Contras IMPRESSION: Degenerative changes of the cervical spine. There are no acute findings. Electronically Signed: Girma Clemente MD at 18:20 EST Reading Location ID and State: [facility] / [place] , Service support ,
--- NOTE | 2022-04-29 17:07 | CT_ITS ---
STUDY: CT BRAIN WITHOUT CONTRAST REASON FOR EXAM: Male, 66 years old. HEADACHE fall TECHNIQUE: Transaxial CT imaging of the brain was performed without administration of intravenous contrast material. Individualized dose optimization techniques were used for this CT. COMPARISON: None FINDINGS: Normal calvarium. Normal soft tissues. 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 There is mild cerebral atrophy with widening of the extra-axial spaces and ventricular dilatation. Normal white matter tracts of the cerebral hemispheres. Normal basal ganglia and thalami. Normal brainstem. Normal cerebellum. There is no intracranial hemorrhage. There are no findings of an acute ischemic infarction. Normal visualized paranasal sinuses. ASPECTS 10 CT/Brain/Head without Contrast IMPRESSION: There are no acute intracranial findings. Electronically Signed: Girma Clemente MD at 18:19 EST ,
[2022-04-29 17:31] LABS: Bedside Glucose 231 mg/dL (74-106)
[2022-04-29 17:36] VITALS: BP 157/87; BP 162/88; BP 168/86; PULSE 63; PULSE 68; PULSE 69
[2022-04-29 17:37] LABS: Absolute Neutrophil Count 7.2 X10^3/uL (2.0-7.7); Basophil# 0.06 X10^3/uL; Basophil% 0.6 % (0-1); Eosinophil# 0.25 X10^3/uL; Eosinophils% 2.6 % (0-5); Hematocrit 42.7 % (40-54); Hemoglobin 13.8 g/dL (13.0-16.5); Lymphocyte % 12.7 % (19-41); Mean Corp Hgb Conc 32.3 g/dL (32-36); Mean Corpuscular Hgb 29.3 pg (27.0-32.0); Mean Corpuscular Volume 90.7 fL (80-94); Mean Platelet Vol. 10.8 fl (6.2-12.0); Monocyte# 0.65 X10^3/uL; Monocyte% 6.9 % (0-10); NRBC Flagged by Analyzer 0 % (0-5); Neutrophil % 76.4 % (47-70); Platelet Count 200 K/mm3 (150-450); RBC Distribution Width SD 43.6 fl (35.1-43.9); Red Blood Count 4.71 M/mm3 (4.6-6.2); White Blood Count 9.4 K/mm3 (4.4-11.0)
--- NOTE | 2022-04-29 17:45 | RAD_ITS ---
STUDY: X-RAY CHEST REASON FOR EXAM: Male, 66 years old. syncope TECHNIQUE: XR Chest 2 Views COMPARISON: None FINDINGS: Normal visualized aortic arch and descending thoracic aorta. There are diffuse degenerative changes of the visualized thoracic spine. There is degenerative osteoarthritis of the bilateral shoulders. There is no demonstrated pleural abnormality. Normal size heart. Normal mediastinum and seferino. Normal visualized pulmonary arteries. There is no demonstrated abnormality of the visualized soft tissue structures of the upper abdomen. RAD/Chest PA and Lateral IMPRESSION: There are no acute findings. Electronically Signed: Girma Clemente MD at 18:14 EST ,
[2022-04-29 17:54] LABS: ALB/GLOB Ratio 0.8 RATIO (0.9-2.4); AST(SGOT) 16 U/L (15-37); Alanine Aminotransfer ALT/SGPT 47 U/L (16-61); Albumin, Serum 3.2 g/dL (3.2-5.0); Alkaline Phosphatase 84 U/L (45-117); Anion Gap 6 (5-15); BUN 12 mg/dL (7-18); BUN/Creat Ratio 11.9 RATIO (10-20); Calcium,Total 8.7 mg/dL (8.5-10.1); Chloride 102 mmol/L (98-107); Creatinine, Serum 1.01 mg/dL (0.70-1.30); EST Glomerular Filtration Rate 78 mL/min (>60); Est Glom Filt Rate - Afr Amer 95 mL/min (>60); Estimated Creatinine Clearance 81.31 ml/min; Globulin 3.8 g/dL (2.2-4.2); Glucose 215 mg/dL (74-106); Magnesium 2.2 mg/dL (1.6-2.6); Sodium Level 136 mmol/L (136-145); Troponin-I HS 13 pg/mL (3.0-78.0)
[2022-04-29 20:07] LABS: Bacteria 0 SEEN /hpf (None Seen); Mucous, Urine 0 SEEN /hpf (<or=2+); Red Blood Cells-Urine 0 SEEN /hpf (0-5); White Blood Cells 0 SEEN /hpf (0-5)
[2022-04-29 20:11] LABS: Color, Urine Yellow (Yellow); Glucose, Dipstick 250 mg/dl (Normal); Ketone-Dipstick Negative (Negative); Leukocyte Esterase-Dipstick Negative /ul (Negative); Nitrite-Dipstick Negative (Negative); Occult Blood-Urine Negative /ul (Negative); Protein-Dipstick Negative (Negative); Specific Gravity, Urine 1.015 (1.002-1.030); Urine Bilirubin Dipstick Negative (Negative); Urine Clarity Clear (Clear); Urine Urobilinogen Normal (Normal)
[2022-04-29 20:20] LABS: Squamous Epithelial Cells - UA 0-5 SEEN /hpf (0-5)
[2022-04-29 20:32] LABS: Troponin-I HS 13 pg/mL (3.0-78.0)
== END 2022-04-29 21:32 | disposition home or self-care (01) ==
PROVIDERS: Physician Assistant; Emergency Provider Emergency Medicine; PCP Family Medicine; Visit Provider Emergency Medicine
DX: R55 Syncope and collapse (principal); G47.33 Obstructive sleep apnea (adult) (pediatric); Z95.0 Presence of cardiac pacemaker
CPT/HCPCS: 70450; 71046; 72125; 80053; 81001; 82962; 83735; 84484; 85025; 93005; 99285; A4216

== ENCOUNTER 2022-04-30 15:18 | Emergency (ER) | payer MEDICARE, OTHER, SELFPAY ==
--- NOTE | 2022-04-30 15:19 | EKG12_ITS ---
Test Reason : HEART PAUSES Blood Pressure : / mmHG Vent. Rate : 059 BPM Atrial Rate : 059 BPM P-R Int : 254 ms QRS Dur : 156 ms QT Int : 466 ms P-R-T Axes : 077 097 066 degrees QTc Int : 461 ms Sinus bradycardia with 1st degree A-V block with occasional Premature ventricular complexes Rightward axis Right bundle branch block Abnormal ECG Confirmed by ISACC PICHARDO, ZACK ([id number]), editor at large FAITH LIZAMA ([id number]) on 05/02/2022 9:27:48 AM Referred By: JOLENE Confirmed By:ZACK DEXTER MD
[2022-04-30 15:20] VITALS: RESP 18; TEMP 34.9; BMI 42.1
[2022-04-30 15:24] VITALS: BP 149/81; PULSE 59; RESP 22; O2SAT 97
[2022-04-30] MEDS: 0.9% Normal Saline 1,000 ML 150 ML IV (15:34)
[2022-04-30 15:47] VITALS: BP 151/76; PULSE 60; RESP 24; O2SAT 100
[2022-04-30 15:50] LABS: Hemoglobin 14.7 g/dL (13.0-16.5); Mean Corp Hgb Conc 33.4 g/dL (32-36); Mean Corpuscular Hgb 29.8 pg (27.0-32.0); Mean Corpuscular Volume 89.1 fL (80-94); Mean Platelet Vol. 11.2 fl (6.2-12.0); Platelet Count 227 K/mm3 (150-450); RBC Distribution Width SD 42.3 fl (35.1-43.9); Red Blood Count 4.94 M/mm3 (4.6-6.2); White Blood Count 9.2 K/mm3 (4.4-11.0)
[2022-04-30 15:51] LABS: Bedside Glucose 256 mg/dL (74-106)
[2022-04-30 16:11] LABS: Anion Gap 9 (5-15); BUN 13 mg/dL (7-18); BUN/Creat Ratio 11.3 RATIO (10-20); Chloride 102 mmol/L (98-107); Creatinine, Serum 1.15 mg/dL (0.70-1.30); EST Glomerular Filtration Rate 67 mL/min (>60); Est Glom Filt Rate - Afr Amer 82 mL/min (>60); Estimated Creatinine Clearance 71.41 ml/min; Glucose 265 mg/dL (74-106); Sodium Level 134 mmol/L (136-145); Troponin-I HS 12 pg/mL (3.0-78.0)
[2022-04-30] MEDS: Glucagon 1 MG/ML Syringe IV (16:12)
[2022-04-30 16:19] VITALS: BP 158/92; PULSE 65; RESP 14; O2SAT 97
--- NOTE | 2022-04-30 16:24 | ED.RN ---
Dr. Rolle at bedside to assist with pacing.
--- NOTE | 2022-04-30 16:40 | EDS_ITS ---
HPI History of Present Illness Chief Complaint: Syncope Detail of Chief Complaint: high agree heart block Informant: patient and EMS (EMS rhythm strip shows 5-7 9 conducted P waves. Patient becomes syncopal when this occurs.) Onset/Context/Timing Onset: Days Timing: Intermittent Quality: Syncope Location: Not applicable Current Severity: Severe Maximum Severity: Severe Worsened by: Unknown Relieved by: Nothing Associated Symptoms Associated Symptoms: Diaphoresis, shortness of breath and unresponsiveness Narrative Narrative: Patient is a 66-year-old male with history of diabetes, hypertension, obstructive sleep apnea on CPAP, right kidney mass, long-term anticoagulant use who presents for syncopal episode. Rhythm strip that accompany patient reveals he has high degree heart block with syncope. Patient arrived diaphoretic pale and semiresponsive. Once he regained a pulse he became awake and was able to answer questions. He denies headache, visual, ocular auditory symptoms. Denies chest pain. Does complain of shortness of breath. His abdominal pain. Denies back pain. He does complain of swelling of his legs. Prior similar symptoms: Yes Recent Illness/Hospitalization: Yes [facility] Medical History Afib Arthritis Back pain Cancer Cardiology follow-up encounter CPAP (continuous positive airway pressure) dependence Diabetes Dietary restriction history of a heart ablation History of cardioversion History of diverticulitis History of echocardiogram History of gout History of stress test Hypertension Loss of hearing Non-smoker Personal history of other malignant neoplasm of kidney Pulmonary nodule less than 1 cm in diameter with low risk for malignant neoplasm Pure hypercholesterolemia, unspecified SOB (shortness of breath) Wears dentures Wears glasses Home Medications doxazosin 4 mg tablet 4 mg PO QHS 09/15/15 [History Last Taken 09/14/15 22:00] glimepiride 1 mg tablet 1 mg PO DAILY 09/15/15 [History Last Taken 09/12/15 1 MG] multivitamin 1 ea PO DAILY 09/15/15 [History Last Taken 09/15/15 08:00] amlodipine 5 mg-benazepril 20 mg capsule 1 cap PO DAILY 12/06/19 [History Last Taken 11/27/21] apixaban 5 mg tablet 5 mg PO BID 12/06/19 [History Last Taken 11/23/21] blood sugar diagnostic #10 ea 12/06/19 [History Last Taken Unknown] metoprolol tartrate 50 mg tablet 50 ea PO BID 12/06/19 [History Last Taken 06/19] metformin 500 mg tablet 500 mg PO BID 08/31/21 [History Last Taken Unknown] albuterol 90 mcg/actuation aerosol inhaler 90 mcg inhalation PRN PRN SOB 11/20/21 [History Last Taken Unknown] atorvastatin 20 mg tablet 20 mg PO QHS 04/30/22 [History Last Taken Unknown] Allergy/AdvReac Type Severity Reaction Status Date / Time ciprofloxacin [From Cipro] Allergy Severe Other Verified 04/29/22 15:42 ciprofloxacin HCl Allergy Severe Other Verified 04/29/22 15:42 [From Cipro] clarithromycin [From Biaxin] Allergy Severe Other Verified 04/29/22 15:42 lisinopril Allergy Severe Other Verified 04/29/22 15:42 metronidazole Allergy Severe Other Verified 04/29/22 15:42 Family History Mother Hypertension Father Leukemia Sister Multiple sclerosis Surgical History History of colonoscopy History of left nephrectomy History of partial adrenalectomy History of prior ablation treatment History of transurethral resection of prostate Social History household members: spouse Smoking Status: Never smoker alcohol intake: never substance use type: does not use ROS ROS ED Review of Systems ROS Unobtainable: due to mental status and other Details: Because of the acuity of certain symptoms of his condition review of systems was limited and pertinence documented in the HPI narrative. EXAM Physical Exam Const Vital Signs: 04/30/22 15:20 04/30/22 15:24 04/30/22 15:26 Temperature 94.9 F L Temperature Source Temporal Pulse Rate 59 L Respiratory Rate 18 22 H Respiratory Effort Short of Breath Respiratory Pattern Blood Pressure 149/81 H Blood Pressure Mean 103 Pulse Ox 97 Oxygen Delivery Method Nasal Cannula Nasal Cannula Oxygen Flow Rate (L/min) 5 4 04/30/22 15:27 04/30/22 15:47 04/30/22 16:19 Temperature Temperature Source Pulse Rate 60 65 Respiratory Rate 24 H 14 Respiratory Effort Short of Breath Labored Respiratory Pattern Tachypnea Blood Pressure 151/76 H 158/92 H Blood Pressure Mean 101 114 Pulse Ox 100 97 Oxygen Delivery Method Nasal Cannula Nasal Cannula Nasal Cannula Oxygen Flow Rate (L/min) 4 5 5 Positive well nourished, well developed and obese General Appearance ED: well developed, cyanotic, diaphoretic and pallor Nutritional Appearance: obese HEENT Reports moist mucous membranes HEENT Narrative: Head is atraumatic normocephalic. Ears normal. Nares patent. Uvula midline. No deviation with protrusion. Eyes PERRL and EOMs intact bilaterally Eyes Narrative: Patient does wear glasses General Eye ED: Negative for pale conjunctiva or scleral icterus Neck no lymphadenopathy, supple and no JVD Neck Narrative: Trachea is midline. There is no expiratory stridor. Chest Wall inspection of chest normal and palpation of chest normal Resp normal respiratory effort and clear to auscultation bilaterally Cardio S1 normal heart sound, S2 normal heart sound and no murmurs Rate: bradycardia GI normal to inspection, nondistended, normoactive bowel sounds, non-tender, non- distended and no masses; Negative for hepatosplenomegaly Back/Spine no CVA tenderness Cervical Spine: Negative for cervical spine tenderness Thoracic Spine / Upper Back: Negative for thoracic spinal tenderness Lumbar Spine / Lower Back: Negative for lumbar spinal tenderness Neuro CN's II-XII intact bilaterally and no sensory deficits noted Neuro Narrative: Patient is oriented once he has a heartbeat and pulse. Sensorium / Orientation: Negative for alert Psych Mood & Affect: anxious Skin no rashes or lesions noted and no wounds Skin Narrative: Patient is diaphoretic. General Skin Exam: pallor; Negative for jaundice MDM MDM MDM Narrative Medical decision making narrative: External pacer was applied. There was no capture up to 110 mA. Patient would yell out when the external pacer was activated. Patient was verbally consented for transvenous pacemaker. Using ultrasound the right internal jugular line was cannulated second attempt. First attempt resulted in cannulation of the artery. Pressure was held for 5 minutes prior to it attempting again. On second attempt using Salinger technique transvenous catheter was placed without difficulty. There was difficulty with capture. After obtaining assistance by cardiology, Dr. Rolle the balloon was in inflated with ease and capture was consistent. Capture was lost when since he was dropped to 3. Voltage is 12. Rate is set at 50 since his intrinsic rate is 58 and mode is VV 1. Since patient was on a beta-alannah he received glucagon. This had no effect. This was performed per the suggestion of the accepting molecular pathologist from [facility]. Furthermore, this was performed prior to placement of the transvenous pacing wire. Lab Data Attestation: I reviewed the patient's lab results. Lab results narrative: High-sensitivity troponins normal. CBC is normal. Electrolyte normal. Labs: Laboratory Results - last 24 hr 04/30/22 04/30/22 04/30/22 15:30 15:30 15:31 WBC 9.2 RBC 4.94 Hgb 14.7 Hct 44.0 MCV 89.1 MCH 29.8 MCHC 33.4 RDW Std Deviation 42.3 RDW Coeff of Francy 13.0 Plt Count 227 MPV 11.2 Sodium 134 L Potassium 4.0 Chloride 102 Carbon Dioxide 23.0 Anion Gap 9 BUN 13 Creatinine 1.15 Estim Creat Clear Calc 71.41 Est GFR (MDRD) Af Amer 82 Est GFR (MDRD) Non-Af 67 BUN/Creatinine Ratio 11.3 Glucose 265 H Calcium 9.0 Troponin I High Sens 12 POC Glucose 256 H EKG Initial EKG: Attestation: I personally reviewed and interpreted this EKG as follows: Interpretation: Sinus Bradycardia (Rate is 59. He does have a first- degree AV block with a CT interval of 254 ms. [place] to the right. QRS duration 56 ms. He has nonspecific intraventricular conduction delay. QT duration is 466 ms.) Procedures Other Procedures Procedure(s): Cannulation of the right internal jugular line with transvenous catheter sheath and placement of a transvenous wire using Salinger technique. Critical Care Time Critical Care Time: Yes Critical care time (excluding procedures): 30-74 minutes (42 minutes), Including time spent: (History, physical, documentation, review of prior records, interpretation of laboratory results), Discussing w/Patient &/or Family/Confectionery Laboratory Manager, Discussing w/Consultants (Just at [facility] and nurse at transfer center) and Arranging Admission or Transfer Discharge Plan Triage Chief Complaint: Syncope Other Complaint: Chest Pain Shortness of Breath ED Provider: Lopez James Dx/Rx/DC Orders Clinical Impression: AV heart block, Syncope and collapse, History of diabetes mellitus, History of hypertension, Anticoagulant long-term use Prescriptions: No Action apixaban 5 mg tablet 5 mg PO BID Label Comments: Take 1 tablet by mouth twice daily. metoprolol tartrate 50 mg tablet 50 ea PO BID Label Comments: TAKE 1 TABLET TWICE DAILY amlodipine-benazepril 5-20 mg capsule 1 cap PO DAILY (DME) blood sugar diagnostic Strip See Rx Instructions .ROUTE .MEDSUPPLY Qty: 10 Rx Instructions: As directed metformin 500 mg tablet 500 mg PO BID multivitamin 1 EACH tablet 1 ea PO DAILY Label Comments: vitamin glimepiride 1 MG tablet 1 mg PO DAILY Label Comments: diabetic medication doxazosin 4 MG tablet 4 mg PO QHS Label Comments: heart/blood pressure albuterol 90 mcg/actuation Aerosol 90 mcg INHALATION PRN PRN (Reason: SOB) atorvastatin 20 mg Tablet 20 mg PO QHS Primary Care Provider: Delbert Castro Referrals: Delbert Castro DO [Primary Care Provider] - Disposition Disposition: Acute Care Hospital Discharge Location: [facility]
--- NOTE | 2022-04-30 16:50 | RAD_ITS ---
STUDY: X-RAY CHEST REASON FOR EXAM: Male, 66 years old. dyspnea TECHNIQUE: XR Chest 1 View COMPARISON: 1.2. FINDINGS: There is atherosclerotic calcification of the aortic arch with tortuosity. There are diffuse degenerative changes of the visualized thoracic spine. There is degenerative osteoarthritis of the bilateral shoulders. There is no demonstrated pleural abnormality. Normal size heart. Normal mediastinum and seferino. Normal visualized pulmonary arteries. There is no demonstrated abnormality of the visualized soft tissue structures of the upper abdomen. RAD/Chest 1 View (Portable) IMPRESSION: There are no acute findings. Electronically Signed: Girma Clemente MD at 17:15 EST ,
[2022-04-30 17:06] VITALS: BP 132/79; PULSE 68; RESP 16; O2SAT 98
== END 2022-04-30 17:08 | disposition short-term general hospital (02) ==
PROVIDERS: Emergency Provider Emergency Medicine; PCP Family Medicine; Visit Provider Emergency Medicine
DX: R55 Syncope and collapse (principal); E11.9 Type 2 diabetes mellitus without complications; I44.30 Unspecified atrioventricular block; Z95.0 Presence of cardiac pacemaker; I10 Essential (primary) hypertension; E78.00 Pure hypercholesterolemia, unspecified; E66.9 Obesity, unspecified; Z79.01 Long term (current) use of anticoagulants; Z20.822 Contact with and (suspected) exposure to COVID-19
CPT/HCPCS: 71045; 80048; 82962; 84484; 85027; 87811; 93005; 96374; 99285; A4216; C1894; J1610

== ENCOUNTER 2022-05-03 17:34 | Emergency (ER) | payer MEDICARE, OTHER, SELFPAY ==
[2022-05-03] VITALS (7 sets, daily range): BP systolic 152–181; BP diastolic 82–114; PULSE 65–97; RESP 15–19; TEMP 36.6; O2SAT 94–97; BMI 40.8
--- NOTE | 2022-05-03 17:52 | EKG12_ITS ---
Test Reason : Blood Pressure : / mmHG Vent. Rate : 074 BPM Atrial Rate : 074 BPM P-R Int : 206 ms QRS Dur : 124 ms QT Int : 422 ms P-R-T Axes : 082 -85 089 degrees QTc Int : 468 ms Atrial-sensed ventricular-paced rhythm Abnormal ECG Confirmed by NEERAJ PICHARDO, ANASTASIYA ([id number]), scientific editor FAITH LIZAMA ([id number]) on 05/06/2022 11:03:08 AM Referred By: UGO/RADU Confirmed By:RAHEEM PICKARD MD
--- NOTE | 2022-05-03 17:53 | EDS_ITS ---
HPI History of Present Illness Chief Complaint: Weakness Informant: patient and family Narrative Narrative: Patient presents with a near syncopal episode. This patient has a complex medical history including history of atrial fibrillation, high blood pressure, diabetes and obesity cholesterol. He was also in here recently for episodes of syncope. He was found to be in heart block. Transvenous pacer was placed. He was transferred to [facility] where a permanent place maker was placed about 2 days ago. He is on his Eliquis and is taking it. He is not complaining of bleeding. He has been feeling okay. Shortly before arrival he had an episode where he got a buzzing or rushing sound in his ears and felt lightheaded like he might pass out and had darkening of his vision. This is exactly the same as the other symptoms that he had. These are the symptoms that prompted him to come in and eventually get a pacemaker. He does not recall any abnormal heartbeats or rhythms at the time. He never had any pain discomfort pressure in his chest abdomen back or elsewhere. No headache. He had generalized weakness but no focal weakness numbness tingling. He had no nausea or vomiting. Patient has hooked up a home monitoring program with his new [employer] pacemaker. He states it is a pacemaker not defibrillator. He is not sure if his transmits data to his compressor technician but it sounds like it likely is capable of this. He had hooked up to monitoring program prior to this event. He did not fall or hurt himself. Other than history of present illness, review of systems is negative. [facility] Medical History Afib Arthritis Back pain Cancer Cardiology follow-up encounter CPAP (continuous positive airway pressure) dependence Diabetes Dietary restriction history of a heart ablation History of cardioversion History of diverticulitis History of echocardiogram History of gout History of stress test Hypertension Loss of hearing Non-smoker Pacemaker Personal history of other malignant neoplasm of kidney Pulmonary nodule less than 1 cm in diameter with low risk for malignant neoplasm Pure hypercholesterolemia, unspecified SOB (shortness of breath) Wears dentures Wears glasses Home Medications doxazosin 4 mg tablet 4 mg PO QHS 09/15/15 [History Last Taken 09/14/15 22:00] glimepiride 1 mg tablet 1 mg PO DAILY 09/15/15 [History Last Taken 09/12/15 1 MG] multivitamin 1 ea PO DAILY 09/15/15 [History Last Taken 09/15/15 08:00] amlodipine 5 mg-benazepril 20 mg capsule 1 cap PO DAILY 12/06/19 [History Last Taken 11/27/21] apixaban 5 mg tablet 5 mg PO BID 12/06/19 [History Last Taken 11/23/21] blood sugar diagnostic #10 ea 12/06/19 [History Last Taken Unknown] metoprolol tartrate 50 mg tablet 50 ea PO BID 12/06/19 [History Last Taken 11/27/21] metformin 500 mg tablet 500 mg PO BID 08/31/21 [History Last Taken Unknown] albuterol 90 mcg/actuation aerosol inhaler 90 mcg inhalation PRN PRN SOB 11/20/21 [History Last Taken Unknown] atorvastatin 20 mg tablet 20 mg PO QHS 04/30/22 [History Last Taken Unknown] Allergy/AdvReac Type Severity Reaction Status Date / Time ciprofloxacin [From Cipro] Allergy Severe Other Verified 05/03/22 17:35 ciprofloxacin HCl Allergy Severe Other Verified 05/03/22 17:35 [From Cipro] clarithromycin [From Biaxin] Allergy Severe Other Verified 05/03/22 17:35 lisinopril Allergy Severe Other Verified 05/03/22 17:35 metronidazole Allergy Severe Other Verified 05/03/22 17:35 Family History Mother Hypertension Father Leukemia Sister Multiple sclerosis Surgical History History of colonoscopy History of left nephrectomy History of partial adrenalectomy History of prior ablation treatment History of transurethral resection of prostate Social History household members: spouse Smoking Status: Never smoker alcohol intake: never substance use type: does not use ROS ROS ED Constitutional Constitutional ED: Denies chills or fever(s) Eyes Eyes: Reports change in vision ENT ENT ED: Denies rhinorrhea or sore throat Cardiovascular Cardiovascular: Denies chest pain, palpitations or racing heartbeat Respiratory/Chest Respiratory/Chest: Denies cough or dyspnea Gastrointestinal Gastrointestinal: Denies nausea or vomiting Musculoskeletal Musculoskeletal: Denies arthralgias or myalgias Integumentary Denies rash Neurologic Neurologic: Denies headache(s), paresthesias or weakness Endocrine Endocrinology: Denies polydipsia or polyuria Hematologic/Lymphatic Hematologic/Lymphatic: Reports easy bleeding and easy bruising Allergic/Immunologic Allergic/Immunologic ED: Denies urticaria EXAM Physical Exam Narrative Exam Narrative: Patient is awake alert no acute distress. He is conversant. He does not look ill or toxic. He does not look pale. He is not diaphoretic. No sign of head trauma. No pallor or icterus. Mucous membranes are moist. No JVD. His lungs are clear and there is no pain with a deep breath. He has a pacer placed in the left upper chest with a clean dressing on it. There is no inflammation redness bleeding swelling or significant tenderness. Heart does sound regular with a rate about 70 or 75. On the monitor it looks to be paced. I do not see any ectopy. Abdomen is obese but overall benign. No tenderness at all. No CVA tenderness. Extremities show some mild edema but this is chronic and unchanged. There is no tenderness or asymmetry. No mottling. Patient is awake alert appropriate. Const Vital Signs: 05/03/22 17:35 05/03/22 17:41 05/03/22 17:43 Temperature 97.8 F Temperature Source Temporal Pulse Rate 97 74 Respiratory Rate 18 19 H Respiratory Effort Short of Breath Blood Pressure 181/114 H Blood Pressure Mean 136 Pulse Ox 97 96 Oxygen Delivery Method Room Air Room Air 05/03/22 17:45 05/03/22 18:01 05/03/22 18:24 Temperature Temperature Source Pulse Rate 75 71 Respiratory Rate 17 Respiratory Effort Blood Pressure 173/94 H 152/85 H Blood Pressure Mean 120 107 Pulse Ox 96 95 94 Oxygen Delivery Method Room Air Room Air Room Air 05/03/22 19:06 Temperature Temperature Source Pulse Rate 65 Respiratory Rate 18 Respiratory Effort Blood Pressure 163/82 H Blood Pressure Mean 109 Pulse Ox 95 Oxygen Delivery Method Room Air MDM MDM MDM Narrative Medical decision making narrative: Patient CBC shows no sign of anemia. Platelets white count are also normal. Electrolytes show no kidney injury or electrolyte abnormalities. Glucose was mildly up at 190. His first troponin was normal at 18. We did repeat the troponin even though he never had chest pain. This is also unchanged at 18. On the monitor he has had a paced rhythm at about 75 the entire time. There has been no ectopy. We were able to contact and discussed the case with the artists' booking representative for the patient's pacemaker. They reviewed his recent rhythms and found no abnormalities at all that would explain this. They did send us a fax of the data and we see no dysrhythmias on this information that was reviewed by myself. I did discuss the case with the patient's compressor technician who placed the pacer, Dr. Holm. He agrees that there is no indication of pacer dysfunction. Patient had similar symptoms but they were milder. I did talk to the patient about neurology evaluation. He evidently has already been seeing a neurologist. He last saw them 2 weeks ago. He has had outpatient imaging including MRI. He is also had EEG and sleep deprived EEG. They could not find any neurologic reason for his symptoms. They had recommended a 2 to 4-week Holter monitor but we have already bypassed that and the patient has a pacemaker. I think the patient is safe for follow-up. He will continue his medications as prescribed. He will follow-up with his primary physician. We did discuss reasons to come back in the hospital. Lab Data Attestation: I reviewed the patient's lab results. Labs: Laboratory Results - last 24 hr 05/03/22 05/03/22 05/03/22 17:45 17:45 20:15 WBC 10.0 RBC 4.91 Hgb 14.5 Hct 44.2 MCV 90.0 MCH 29.5 MCHC 32.8 RDW Std Deviation 43.0 RDW Coeff of Francy 13.2 Plt Count 223 MPV 11.0 Immature Gran % (Auto) 0.900 Neut % (Auto) 71.6 H Lymph % (Auto) 14.4 L [place] % (Auto) 8.2 Eos % (Auto) 4.4 Baso % (Auto) 0.5 Absolute Neuts (auto) 7.1 Absolute Lymphs (auto) 1.43 Nucleated RBC % 0 Sodium 136 Potassium 4.0 Chloride 105 Carbon Dioxide 26.0 Anion Gap 5 BUN 12 Creatinine 1.08 Estim Creat Clear Calc 76.04 Est GFR (MDRD) Af Amer 88 Est GFR (MDRD) Non-Af 73 BUN/Creatinine Ratio 11.1 Glucose 190 H Calcium 8.9 Magnesium 2.3 Troponin I High Sens 18 18 Radiography Diagnostic Testing: Clinical Impression(s) from Imaging Studies Chest X-Ray 05/03/22 18:10 IMPRESSION: 1. Interval placement of dual lead transvenous pacer leads projecting in normal position. 2. No pneumothorax. 3. Stable pleural-parenchymal scar versus atelectasis at the LEFT CP angle. Remaining lung zones are clear. Electronically Signed: Varghese Alonso MD at 18:41 EST , EKG Initial EKG: Comments: My independent interpretation of this patient's EKG. EKG was done for his near syncopal episode. This shows paced rhythm. It looks to be atrial sensed with normal P wave. It is ventricularly paced. No ectopy is noted. No PACs or PVCs. No acute ST elevation or depression other than what 1 would expect with paced rhythm. NM interval is just long at 206 ms likely programmed. QRS duration is a bit long at 124. QTc is toward the longer end at 468 ms. Discharge Plan Triage Chief Complaint: Weakness ED Provider: Terrance Medeiros Dx/Rx/DC Orders Clinical Impression: Near syncope, Pacemaker Instructions: ED Near-Fainting, Uncertain Cause Prescriptions: No Action apixaban 5 mg tablet 5 mg PO BID Label Comments: Take 1 tablet by mouth twice daily. metoprolol tartrate 50 mg tablet 50 ea PO BID Label Comments: TAKE 1 TABLET TWICE DAILY amlodipine-benazepril 5-20 mg capsule 1 cap PO DAILY (DME) blood sugar diagnostic Strip See Rx Instructions .ROUTE .MEDSUPPLY Qty: 10 Rx Instructions: As directed metformin 500 mg tablet 500 mg PO BID multivitamin 1 EACH tablet 1 ea PO DAILY Label Comments: vitamin glimepiride 1 MG tablet 1 mg PO DAILY Label Comments: diabetic medication doxazosin 4 MG tablet 4 mg PO QHS Label Comments: heart/blood pressure albuterol 90 mcg/actuation Aerosol 90 mcg INHALATION PRN PRN (Reason: SOB) atorvastatin 20 mg Tablet 20 mg PO QHS Primary Care Provider: Delbert Castro Referrals: Delbert Castro, [Primary Care Provider] - As soon as possible Disposition Disposition: Home, Self Care
--- NOTE | 2022-05-03 18:02 | ED.RN ---
Pacemaker interrogated
[2022-05-03 18:08] LABS: Absolute Lymphocyte Count 1.43 X10^3/uL (0.83-4.51); Absolute Neutrophil Count 7.1 X10^3/uL (2.0-7.7); Basophil# 0.05 X10^3/uL; Basophil% 0.5 % (0-1); Eosinophil# 0.44 X10^3/uL; Eosinophils% 4.4 % (0-5); Hematocrit 44.2 % (40-54); Hemoglobin 14.5 g/dL (13.0-16.5); Lymphocyte # 1.43 X10^3/ul (0.83-4.51); Lymphocyte % 14.4 % (19-41); Mean Corp Hgb Conc 32.8 g/dL (32-36); Mean Corpuscular Hgb 29.5 pg (27.0-32.0); Monocyte# 0.82 X10^3/uL; Monocyte% 8.2 % (0-10); NRBC Flagged by Analyzer 0 % (0-5); Neutrophil # 7.13 X10^3/uL (2.7-7.7); Neutrophil % 71.6 % (47-70); Platelet Count 223 K/mm3 (150-450); RBC Distribution Width CV 13.2 % (11.6-14.6); Red Blood Count 4.91 M/mm3 (4.6-6.2)
[2022-05-03] MEDS: Aspirin 81 MG TAB.CHEW 324 MG PO (18:09)
--- NOTE | 2022-05-03 18:10 | RAD_ITS ---
INDICATION: chest pain EXAMINATION/TECHNIQUE: X-RAY - XR Chest 1 View COMPARISON: 04/30/2022 FINDINGS: LIFE-SUPPORT AND LINES: 1. Changes pacer leads have been placed interval projecting in normal position. 2. No pneumothorax. HEART AND VESSELS: The cardiac silhouette, pulmonary vasculature have normal appearance. No evidence of congestive failure. LUNGS AND PLEURAL SPACES: Lungs are clear. No focal infiltrate, consolidation or effusions. No evidence of pneumothorax. Minimal pleural-parenchymal scar versus atelectasis at the LEFT CP angle without change. MEDIASTINUM AND HILAR REGIONS: No masses adenopathy noted. No areas of calcification. Visualized upper airway is normal in position. BONY ELEMENTS: No acute bony changes noted. RAD/Chest 1 View (Portable) IMPRESSION: 1. Interval placement of dual lead transvenous pacer leads projecting in normal position. 2. No pneumothorax. 3. Stable pleural-parenchymal scar versus atelectasis at the LEFT CP angle. Remaining lung zones are clear. Electronically Signed: Varghese Alonso MD at 18:41 EST ,
--- NOTE | 2022-05-03 18:38 | ED.RN ---
Pacemaker interrogated and report given to Dr. Medeiros.
[2022-05-03 18:52] LABS: Anion Gap 5 (5-15); BUN 12 mg/dL (7-18); BUN/Creat Ratio 11.1 RATIO (10-20); Calcium,Total 8.9 mg/dL (8.5-10.1); Chloride 105 mmol/L (98-107); Creatinine, Serum 1.08 mg/dL (0.70-1.30); EST Glomerular Filtration Rate 73 mL/min (>60); Est Glom Filt Rate - Afr Amer 88 mL/min (>60); Estimated Creatinine Clearance 76.04 ml/min; Glucose 190 mg/dL (74-106); Magnesium 2.3 mg/dL (1.6-2.6); Sodium Level 136 mmol/L (136-145); Troponin-I HS (w/2H Reflex) 18 pg/mL (3.0-78.0)
[2022-05-03 20:04] LABS: Reflex Troponin-HS? (from REC) Y
[2022-05-03 20:40] LABS: Troponin-I HS 18 pg/mL (3.0-78.0)
== END 2022-05-03 22:42 | disposition home or self-care (01) ==
PROVIDERS: Emergency Provider Emergency Medicine; PCP Family Medicine; Visit Provider Emergency Medicine
DX: R55 Syncope and collapse (principal); E11.9 Type 2 diabetes mellitus without complications; I10 Essential (primary) hypertension; Z95.0 Presence of cardiac pacemaker; E78.00 Pure hypercholesterolemia, unspecified; Z72.820 Sleep deprivation
CPT/HCPCS: 71045; 80048; 83735; 84484; 85025; 93005; 99284; A4216

== ENCOUNTER 2024-06-08 09:17 | Inpatient (IN) | payer MEDICARE, OTHER, SELFPAY ==
[2024-06-08] VITALS (17 sets, daily range): BP systolic 135–184; BP diastolic 76–153; PULSE 42–95; RESP 16–28; TEMP 36.3–36.9; O2SAT 86–96; BMI 39.4
[2024-06-08 09:39] LABS: Absolute Lymphocyte Count 1.15 X10^3/uL (0.83-4.51); Absolute Neutrophil Count 8.1 X10^3/uL (2.0-7.7); Basophil# 0.06 X10^3/uL; Basophil% 0.6 % (0-1); Eosinophil# 0.21 X10^3/uL; Hematocrit 41.3 % (40-54); Hemoglobin 13.7 g/dL (13.0-16.5); Lymphocyte # 1.15 X10^3/ul (0.83-4.51); Lymphocyte % 11.1 % (19-41); Mean Corp Hgb Conc 33.2 g/dL (32-36); Mean Corpuscular Hgb 29.7 pg (27.0-32.0); Mean Corpuscular Volume 89.6 fL (80-94); Mean Platelet Vol. 11.3 fl (6.2-12.0); Monocyte# 0.73 X10^3/uL; Monocyte% 7.1 % (0-10); NRBC Flagged by Analyzer 0 % (0-5); Neutrophil # 8.13 X10^3/uL (2.7-7.7); Neutrophil % 78.5 % (47-70); Platelet Count 235 K/mm3 (150-450); RBC Distribution Width CV 13.8 % (11.6-14.6); RBC Distribution Width SD 44.7 fl (35.1-43.9); Red Blood Count 4.61 M/mm3 (4.6-6.2); White Blood Count 10.4 K/mm3 (4.4-11.0)
[2024-06-08 09:58] LABS: Anion Gap 6 (5-15); BUN 13 mg/dL (7-18); BUN/Creat Ratio 11.4 RATIO (10-20); Calcium,Total 9.2 mg/dL (8.5-10.1); Chloride 106 mmol/L (98-107); Creatinine, Serum 1.14 mg/dL (0.70-1.30); EST Glomerular Filtration Rate 68 mL/min (>60); Est Glom Filt Rate - Afr Amer 82 mL/min (>60); Glucose 173 mg/dL (74-106); Sodium Level 138 mmol/L (136-145); Troponin-I HS 30 pg/mL (3.0-78.0)
--- NOTE | 2024-06-08 10:08 | EKG12_ITS ---
Test Reason : SON Blood Pressure : */* mmHG Vent. Rate : 69 BPM Atrial Rate : 71 BPM P-R Int : * ms QRS Dur : 148 ms QT Int : 440 ms P-R-T Axes : * 68 94 degrees QTcB Int : 471 ms nsr with Ventricular-paced rhythm Abnormal ECG Confirmed by Mirza Noyola ([id number]), editor index ETTA GARCIA ([id number]) on 06/09/2024 11:22:06 AM Referred By: Confirmed By: Mirza Noyola
--- NOTE | 2024-06-08 10:10 | RAD_ITS ---
PROCEDURE: CHEST 1 VIEW (PORTABLE) REASON FOR EXAM: Shortness of breath. TECHNIQUE: Frontal view of the chest. COMPARISON: Chest x-ray of 05/03/2022 RAD/Chest 1 View (Portable) IMPRESSION: At least mild interstitial pulmonary edema is newly present. Asymmetric right mid and especially lower lung airspace disease is noted; diffe rential diagnosis includes atypical pulmonary edema and pneumonitis, superimposed. No pleural effusion or pneumothorax is seen. The cardiomediastinal silhouette is stable, without evidence of cardiomegaly. Reading Location: [id number]
--- NOTE | 2024-06-08 10:27 | ED.VIS.DYS ---
HPI History of Present Illness Chief Complaint: Shortness of Breath Narrative Narrative: 69-year-old male past medical history of pacemaker, on quis, obstructive sleep apnea, presents with sudden onset of shortness of breath that he experienced this morning. Per EMS, when they arrived he is hypoxic in the 70s. He relates history that a similar episode happened to him on Friday, approximately 2 days ago. However, it resolved and he was feeling improved. He has had an occasional cough and felt cold this morning. He states when he got the shower, he started having increased difficulty breathing. He is a former smoker but quit years ago. He denies any recent leg swelling or history of heart failure. [facility] Medical History Pacemaker Loss of hearing Wears glasses Wears dentures Cancer Arthritis Dietary restriction Hypertension History of diverticulitis Non-smoker CPAP (continuous positive airway pressure) dependence History of echocardiogram History of stress test Cardiology follow-up encounter History of cardioversion Pulmonary nodule less than 1 cm in diameter with low risk for malignant neoplasm Afib Personal history of other malignant neoplasm of kidney Pure hypercholesterolemia, unspecified history of a heart ablation Back pain Diabetes SOB (shortness of breath) History of gout Home Medications ?Medication ?Instructions ?Recorded ?Last Taken ?Type doxazosin 4 mg tablet 4 mg PO QHS 09/15/15 09/14/15 22:00 History multivitamin 1 ea PO DAILY 09/15/15 09/15/15 08:00 History amlodipine 5 mg-benazepril 20 mg 1 cap PO DAILY 12/06/19 11/27/21 History capsule apixaban 5 mg tablet 5 mg PO BID 12/06/19 11/23/21 History blood sugar diagnostic #10 ea 12/06/19 Unknown History metoprolol tartrate 50 mg tablet 50 ea PO BID 12/06/19 11/27/21 History atorvastatin 20 mg tablet 20 mg PO QHS 04/30/22 Unknown History oxybutynin chloride 5 mg tablet 5 mg PO BID 06/08/24 Unknown History tirzepatide 2.5 mg/0.5 mL 2.5 mg subcut QWEEK 06/08/24 Unknown History subcutaneous pen injector (Mounjaro) Allergy/AdvReac Type Severity Reaction Status Date / Time ciprofloxacin (From Cipro) Allergy Severe Other Verified 05/03/22 17:35 ciprofloxacin HCl (From Allergy Severe Other Verified 05/03/22 17:35 Cipro) clarithromycin (From Biaxin) Allergy Severe Other Verified 05/03/22 17:35 lisinopril Allergy Severe Other Verified 05/03/22 17:35 metronidazole Allergy Severe Other Verified 05/03/22 17:35 Family History Mother Hypertension Father Leukemia Sister Multiple sclerosis Surgical History History of transurethral resection of prostate History of left nephrectomy History of colonoscopy History of partial adrenalectomy History of prior ablation treatment Social History household members: spouse Smoking Status: Never smoker alcohol intake: never substance use type: does not use ROS ROS ED ROS Narrative Constitutional: No fever, no rigors, but has felt cold recently. HEENT: No sore throat. No neck pain. No rhinorrhea. Cardiovascular: No chest pain. No palpitations. No pedal edema. Respiratory: Occasional cough, positive shortness of breath. Abdominal: No abdominal pain. No nausea. No vomiting. Genitourinary: No dysuria. No hematuria. Musculoskeletal: No myalgias. No arthralgias. Neurologic: No headaches. No dizziness. No lightheadedness. Skin: No rash. No change in color. Psychiatric: No depression. No anxiety. EXAM Physical Exam Narrative Exam Narrative: Patient examined after protocol orders started. Afebrile. Vital signs noted. Nontoxic-appearing. No acute distress. Cardiovascular examination reveals a regular rate and rhythm. Lungs clear to auscultation bilaterally. Moving a good amount of air. Speaking in full sentences. Abdomen soft and nontender with positive bowel sounds. Const Vital Signs: 06/08/24 09:25 06/08/24 10:09 06/08/24 10:09 Temperature 97.4 F L 97.4 F L Temperature Source Temporal Temporal Pulse Rate 42 L 42 L Respiratory Rate 20 H 20 H Respiratory Effort Respiratory Depth Respiratory Pattern Blood Pressure 149/79 H 149/79 H Blood Pressure Mean 102 102 Pulse Ox 93 93 93 Oxygen Delivery Method Nasal Cannula Nasal Cannula Nasal Cannula Oxygen Flow Rate (L/min) 3 3 3 06/08/24 10:16 06/08/24 10:17 06/08/24 10:18 Temperature Temperature Source Pulse Rate 47 L Respiratory Rate 16 Respiratory Effort Short of Breath Respiratory Depth Deep Respiratory Pattern Normal Blood Pressure 135/91 H Blood Pressure Mean 105 Pulse Ox 93 93 Oxygen Delivery Method Nasal Cannula Nasal Cannula Nasal Cannula Oxygen Flow Rate (L/min) 3 3 2 06/08/24 11:17 06/08/24 11:19 06/08/24 11:23 Temperature 97.4 F L Temperature Source Oral Pulse Rate 73 70 Respiratory Rate 20 H 17 Respiratory Effort Respiratory Depth Respiratory Pattern Blood Pressure 142/92 H 158/135 H Blood Pressure Mean 108 144 Pulse Ox 86 93 Oxygen Delivery Method Room Air Nasal Cannula Oxygen Flow Rate (L/min) 2 06/08/24 11:30 Temperature Temperature Source Pulse Rate 68 Respiratory Rate 19 H Respiratory Effort Respiratory Depth Respiratory Pattern Blood Pressure 174/153 H Blood Pressure Mean 162 Pulse Ox Oxygen Delivery Method Oxygen Flow Rate (L/min) MDM MDM MDM Narrative Medical decision making narrative: Differential diagnosis includes but not limited to COPD exacerbation that is undiagnosed. Also in the differential would be pneumonia versus pneumothorax versus CHF, but patient does not have a history of heart failure although he has a pacemaker. I have very low suspicion for pulmonary embolism as he is already on Eliquis and has not missed a dose. I do not feel that he requires a CT scan for pulmonary embolism. EKG was obtained and interpreted by myself independently as a ventricularly paced rhythm at 69 bpm without ectopy or acute ST changes. No STEMI. I reviewed his laboratory work and he has a normal white count of 10.4, globin 13.7 with hematocrit 41.3, platelet count normal at 235. Electrolyte panel is remarkable for glucose of 173 with a normal anion gap of 6. High-sensitivity troponin is 30. I do not feel he requires serial enzymes. Do not think he has an ACS. BNP is slightly elevated at 190 which I think is nonspecific, I do not think he is in florid CHF. Upon repeat examination, he states he feels improved. Chest x-ray in 1 view interpreted by myself shows no discrete consolidation or pneumonia, no pneumothorax. I reviewed the radiology report which comments on mild interstitial edema and also comments on right lower airspace disease which could be edema or pneumonitis. While patient feels improved on examination, he was taken off oxygen and experiences oxygen desaturation. He was 86% on room air. Given his hypoxia, I will give him a dose of Lasix here and discussed patient with the hospitalist for admission. Patient is in stable condition. History & Record Review Discussion w/independent historian: Patient Lab Data Attestation: I reviewed the patient's lab results. Labs: Laboratory Results - last 24 hr 06/08/24 09:28 WBC 10.4 RBC 4.61 Hgb 13.7 Hct 41.3 MCV 89.6 MCH 29.7 MCHC 33.2 RDW Std Deviation 44.7 H RDW Coeff of Francy 13.8 Plt Count 235 MPV 11.3 Immature Gran % (Auto) 0.700 Neut % (Auto) 78.5 H Lymph % (Auto) 11.1 L Whitman % (Auto) 7.1 Eos % (Auto) 2.0 Baso % (Auto) 0.6 Absolute Neuts (auto) 8.1 H Absolute Lymphs (auto) 1.15 Nucleated RBC % 0 Sodium 138 Potassium 4.0 Chloride 106 Carbon Dioxide 26.0 Anion Gap 6 BUN 13 Creatinine 1.14 Est GFR (MDRD) Af Amer 82 Est GFR (MDRD) Non-Af 68 BUN/Creatinine Ratio 11.4 Glucose 173 H Calcium 9.2 Troponin I High Sens 30 B-Natriuretic Peptide 190.7 H Radiography Chest X-Ray - ED: Read by ED Physician and Read by Radiologist Diagnostic Testing: Clinical Impression(s) from Imaging Studies Chest X-Ray 06/08/24 10:10 IMPRESSION: At least mild interstitial pulmonary edema is newly present. Asymmetric right mid and especially lower lung airspace disease is noted; differential diagnosis includes atypical pulmonary edema and pneumonitis, superimposed. No pleural effusion or pneumothorax is seen. The cardiomediastinal silhouette is stable, without evidence of cardiomegaly. Reading Location: [id number] Management Discussion w/another healthcare provider: Hospitalist (Dr. Love) Discharge Plan Dx/Rx/DC Orders Clinical Impression: SOB (shortness of breath), Hypoxia, Elevated brain natriuretic peptide (BNP) level, Interstitial edema Disposition Disposition: Acute Care Hospital [facility] Discharge Date/Time: 06/08/24 15:10
[2024-06-08] MEDS: MethylPREDNISolone 125 MG/2 ML Vial 60 MG IV (10:35)
[2024-06-08 10:54] LABS: BNP,B-Type NATRIURETIC PEPTIDE 190.7 pg/mL (0-100)
[2024-06-08] MEDS: Furosemide 40 MG/4 ML Vial IV (12:13)
--- NOTE | 2024-06-08 12:14 | ECHOD_ITS ---
Reason For Study Reason For Study: CHF Procedure This was a 2D Doppler, Color Flow transthoracic echocardiogram. The study was technically difficult. Exam performed portable in ED. Left Ventricle Normal LV size. The estimated ejection fraction is 55 %. Unable to assess diastolic dysfunction. No regional wall motion abnormalities noted. Right Ventricle Normal RV size. Normal systolic function. Atria The left and right atria are normal. No doppler evidence for ASD. Mitral Valve There is no mitral valve stenosis. Mild (1+) mitral valve insufficiency. Tricuspid Valve There is no tricuspid stenosis. Unable to estimate RV systolic pressure due to inadequate jet, pulmonary artery pressure probably normal. Aortic Valve Trisinus/trileaflet aortic valve. There is no aortic stenosis. No aortic valve insufficiency. Pulmonic Valve There is no pulmonic valvular stenosis. No pulmonic valve insufficiency. Great Vessels Normal aortic root. Pericardium/Pleural No pericardial effusion. MMode/2D Measurements & Calculations LVIDd: 6.8 cm IVSd: 1.3 cm Ao root diam: 3.8 cm LVIDs: 4.7 cm LVPWd: 1.1 cm RVDd: 4.3 cm FS: 30.9 % LAV(MOD-bp): 71.9 ml LA A4 area: 21.6 cm2 LA dimension(2D): 4.3 cm LAV(MOD-bp) Indexed: 27.9 ml/m2 LAV(MOD-sp2): 66.7 ml LAV(MOD-sp4): 74.2 ml TAPSE: 1.9 cm RA A4 area: 21.6 cm2 Doppler Measurements & Calculations MV E max dada: 91.7 cm/sec MV V2 max: 122.0 cm/sec Ao V2 max: 135.6 cm/sec MV max P.0 mmHg Ao max P.4 mmHg MV V2 mean: 71.4 cm/sec MV mean P.5 mmHg MV V2 VTI: 28.7 cm LV V1 max: 109.8 cm/sec LV V1 max P.9 mmHg ECHO/Echo Complete Interpretation Summary The estimated ejection fraction is 55 %. Unable to assess diastolic dysfunction. Mild (1+) mitral valve insufficiency. Ordering Physician: Alberto Love Referring Physician: Delbert Castro Performed By: Paulo Covington RCS
--- NOTE | 2024-06-08 15:23 | CASEMGMT ---
Care Management Face to Face with patient for initial transition planning/care coordination assessment in the ED. This typewriters functional tester introduced self and role at [facility]. Patient alert and oriented. Patient willing to participate in assessment and is able to answer all questions appropriately. Patient's significant other, Araceli, bedside; permission given by patient to speak in front of patient's guest. Care providers, pharmacy, and demographics verified. Admitting Diagnosis: SOB, Hypoxia, Elevated BNP level, Interstitial edema Other diagnosis history: pacemaker, obstructive sleep apnea PCP: Delbert Castro Specialists: Dr. Richardson, hogshead filler. Patient reports that patient's kidney and cancer doctors kicked me out. Preferred Pharmacy: [facility], [place]. Patient expressed not being happy with [facility] and wanting to switch, but having too many medications to switch. Insurance: Medicare A B (primary). [facility] (secondary). Prescription Benefit: yes Living Will/HPOA: patient denies currently having, but expressed a desire to complete while admitted. LNOK: 2 daughters, Rhoda and Ailyn. Living Arrangements: lives with significant other in a mobile home with 5 steps to enter. Independent with all ADLs at baseline. Transportation: patient drives; patient's main car is questionably reliable, but patient reports having a backup. DME: CPAP, pacemaker, pulse ox, blood pressure cuff, glucometer and testing strips. HHC: none SNF/Rehab: none Community Resources: none Patient goals: Patient wishes to discharge home, denies need for home health care at this time. Patient denies any further needs or concerns at this time. Disposition Plan: admission to acute; RN CM/SW to follow for discharge planning needs that may arise. Paulette Lunsford, [employer]ER, LEGAL ASSOCIATE
[2024-06-08] MEDS: Furosemide 20 MG/2 ML VIAL IV ×2 (16:10→21:33)
[2024-06-08] MEDS: Insulin Lispro 100 UNIT/ML INSULN.PEN SC ×2 (16:10→21:33)
[2024-06-08] MEDS: Potassium Chloride Oral Tablet 20 MEQ PO (16:10)
[2024-06-08 17:25] LABS: Bedside Glucose 237 mg/dL (74-106)
[2024-06-08] MEDS: Ipratropium/Albuterol Sulfate 3 ML AMPUL.NEB INHALATION (19:28)
--- NOTE | 2024-06-08 20:34 | PCM.HP.STD ---
HPI - General General Date of Admission: 06/08/24 Date of Service: 06/08/24 Chief Complaint: Shortness of breath HPI Narrative AUDRA HAINES, is a 69 M who presents to the emergency room at [facility] with complaints of increasing shortness of breath. Patient states to this examiner that he has been getting more short of breath over the last several weeks, patient denies a productive cough, he denies any fevers or chills. Patient states that he has had a history of congestive heart failure in the past, he used to see a embedded hardware engineer in [place] before the embedded hardware engineer moved. Workup in the emergency room included a CBC which was unremarkable, chemistry profile was remarkable for glucose of 173 and beta natruretic peptide was elevated at 190. Chest x-ray revealed mild interstitial pulmonary edema with asymmetric right mid and especially lower lung airspace disease. No pleural effusion was noted. Patient was given IV Lasix in the emergency room, he required low-flow oxygen via nasal cannula to maintain his pulse ox above 90%. Patient will be admitted to PCU, he will be given IV Lasix and have an echocardiogram performed. Labs will be monitored. [facility] Medical History Pacemaker Loss of hearing Wears glasses Wears dentures Cancer Arthritis Dietary restriction Hypertension History of diverticulitis Non-smoker CPAP (continuous positive airway pressure) dependence History of echocardiogram History of stress test Cardiology follow-up encounter History of cardioversion Pulmonary nodule less than 1 cm in diameter with low risk for malignant neoplasm Afib Personal history of other malignant neoplasm of kidney Pure hypercholesterolemia, unspecified history of a heart ablation Back pain Diabetes SOB (shortness of breath) History of gout Home Medications ?Medication ?Instructions ?Recorded ?Last Taken ?Type doxazosin 4 mg tablet 4 mg PO QHS 09/15/15 09/14/15 22:00 History multivitamin 1 ea PO DAILY 09/15/15 09/15/15 08:00 History apixaban 5 mg tablet 5 mg PO BID 12/06/19 11/23/21 History blood sugar diagnostic #10 ea 12/06/19 Unknown History metoprolol tartrate 50 mg tablet 50 ea PO BID 12/06/19 11/27/21 History atorvastatin 20 mg tablet 20 mg PO QHS 04/30/22 Unknown History amlodipine 10 mg-benazepril 20 mg 1 cap PO DAILY bp 06/08/24 Unknown History capsule oxybutynin chloride 5 mg tablet 5 mg PO BID 06/08/24 Unknown History tirzepatide 2.5 mg/0.5 mL 2.5 mg subcut QWEEK 06/08/24 Unknown History subcutaneous pen injector (Mounjaro) Allergy/AdvReac Type Severity Reaction Status Date / Time ciprofloxacin (From Cipro) Allergy Severe Other Verified 05/03/22 17:35 ciprofloxacin HCl (From Allergy Severe Other Verified 05/03/22 17:35 Cipro) clarithromycin (From Biaxin) Allergy Severe Other Verified 05/03/22 17:35 lisinopril Allergy Severe Other Verified 05/03/22 17:35 metronidazole Allergy Severe Other Verified 05/03/22 17:35 Family History Mother Hypertension Father Leukemia Sister Multiple sclerosis Surgical History History of transurethral resection of prostate History of left nephrectomy History of colonoscopy History of partial adrenalectomy History of prior ablation treatment Social History household members: spouse Smoking Status: Never smoker alcohol intake: never substance use type: does not use ROS Constitutional Constitutional: Reports fatigue; Denies anorexia, change in weight, chills, fever(s), night sweats or weakness Eyes Eyes: Denies blurry vision, change in vision, discharge from eye(s) or eye pain ENT HEENT: Denies dysphagia, headache(s), nasal congestion or nasal discharge Cardiovascular Cardiovascular: Reports dyspnea on exertion; Denies chest pain, claudication, edema or palpitations Respiratory/Chest Respiratory/Chest: Reports dyspnea and shortness of breath with exertion; Denies cough, hemoptysis or shortness of breath at rest Gastrointestinal Gastrointestinal: Denies abdominal pain, constipation, diarrhea, hematemesis, hematochezia, melena, nausea or vomiting Genitourinary Genitourinary: Denies dysuria, hematuria, urinary frequency, urinary hesitancy, urinary incontinence or urinary urgency Musculoskeletal Musculoskeletal: Denies back pain, joint pain, joint stiffness, joint swelling, myalgias or neck pain Neurologic Neurologic: Denies abnormal gait, abnormal speech, dizziness, focal weakness, headache(s), loss of vision, numbness, other visual disturbances, paresthesias, syncope or tingling Psychiatric Psychiatric: Denies anxiety, cognitive impairment, depression, irritability, mood swings or suicidal ideation Endocrine Endocrinology: Denies change in body appearance, cold intolerance, excessive sweating, heat intolerance, polydipsia or polyuria Hematologic/Lymphatic Hematologic/Lymphatic: Denies none, anemia, easy bleeding, easy bruising or lymphadenopathy Allergic/Immunologic Allergic/Immunologic: Denies rhinitis, urticaria, eczemia or asthma Vital Signs Vital Signs Vital Signs: 06/08/24 09:25 06/08/24 10:09 06/08/24 10:09 Temperature 97.4 F L 97.4 F L Temperature Source Temporal Temporal Pulse Rate 42 L 42 L Respiratory Rate 20 H 20 H Respiratory Effort Respiratory Depth Respiratory Pattern Blood Pressure 149/79 H 149/79 H Blood Pressure Mean 102 102 Blood Pressure Source Blood Pressure Position Blood Pressure Location Pulse Ox 93 93 93 Oxygen Delivery Method Nasal Cannula Nasal Cannula Nasal Cannula Oxygen Flow Rate (L/min) 3 3 3 06/08/24 10:16 06/08/24 10:17 06/08/24 10:18 Temperature Temperature Source Pulse Rate 47 L Respiratory Rate 16 Respiratory Effort Short of Breath Respiratory Depth Deep Respiratory Pattern Normal Blood Pressure 135/91 H Blood Pressure Mean 105 Blood Pressure Source Blood Pressure Position Blood Pressure Location Pulse Ox 93 93 Oxygen Delivery Method Nasal Cannula Nasal Cannula Nasal Cannula Oxygen Flow Rate (L/min) 3 3 2 06/08/24 11:17 06/08/24 11:19 06/08/24 11:23 Temperature 97.4 F L Temperature Source Oral Pulse Rate 73 70 Respiratory Rate 20 H 17 Respiratory Effort Respiratory Depth Respiratory Pattern Blood Pressure 142/92 H 158/135 H Blood Pressure Mean 108 144 Blood Pressure Source Blood Pressure Position Blood Pressure Location Pulse Ox 86 93 Oxygen Delivery Method Room Air Nasal Cannula Oxygen Flow Rate (L/min) 2 06/08/24 11:30 06/08/24 12:10 06/08/24 12:32 Temperature 97.4 F L 98.1 F Temperature Source Oral Pulse Rate 68 76 83 Respiratory Rate 19 H 19 H 18 Respiratory Effort Respiratory Depth Respiratory Pattern Blood Pressure 174/153 H 184/102 H 149/99 H Blood Pressure Mean 162 129 115 Blood Pressure Source Blood Pressure Position Blood Pressure Location Pulse Ox 92 92 Oxygen Delivery Method Nasal Cannula Oxygen Flow Rate (L/min) 2 06/08/24 13:00 06/08/24 14:00 06/08/24 15:47 Temperature 98.4 F Temperature Source Oral Pulse Rate 82 87 77 Respiratory Rate 28 H 23 H 18 Respiratory Effort Respiratory Depth Respiratory Pattern Blood Pressure 165/80 H 174/116 H 153/90 H Blood Pressure Mean 108 135 111 Blood Pressure Source Monitor Blood Pressure Position Semi-Fowlers Blood Pressure Location Right Arm Pulse Ox 93 94 92 Oxygen Delivery Method Nasal Cannula Nasal Cannula Nasal Cannula Oxygen Flow Rate (L/min) 2 2 2 06/08/24 16:00 Temperature Temperature Source Pulse Rate Respiratory Rate Respiratory Effort Normal Non-Labored Respiratory Depth Normal Respiratory Pattern Normal Blood Pressure Blood Pressure Mean Blood Pressure Source Blood Pressure Position Blood Pressure Location Pulse Ox Oxygen Delivery Method Nasal Cannula Oxygen Flow Rate (L/min) 2 Weight Weight: 135.669 kg Body Mass Index (BMI) 39.4 Physical Exam Const alert, oriented x3 and no apparent distress General Appearance: cooperative, well kempt and well developed Orientation / Consciousness: awake, oriented to person, oriented to place and oriented to time HEENT normocephalic, head/scalp atraumatic, hearing grossly normal bilaterally and moist oral mucous membranes Eyes PERRL, EOMs intact bilaterally and conjunctivae normal Neck supple, no JVD, thyroid normal and no carotid bruits General: trachea midline Resp normal respiratory effort, no retractions and no use of accessory muscles Resp Narrative: Breath sounds are distant bilaterally Auscultation: Negative for rales, rhonchi or wheezes Cardio regular rate, regular rhythm, S1 normal heart sound, S2 normal heart sound, no murmurs, no rub and no gallops GI normal to inspection, nondistended, normoactive bowel sounds, soft to palpation, non-tender and non-distended Extremity no clubbing, cyanosis or edema Skin no rashes or lesions noted General Skin Exam: no breakdown Neuro oriented x3, CN's II-XII intact bilaterally, moves all extremities, no focal motor deficits and no sensory deficits noted Sensorium / Orientation: awake and alert Speech: speech normal Psych affect normal Results Lab / Micro Data 06/08/24 09:28 06/08/24 09:28 Labs: Laboratory Results - last 24 hr 06/08/24 09:28: WBC 10.4, RBC 4.61, Hgb 13.7, Hct 41.3, MCV 89.6, MCH 29.7, MCHC 33.2, RDW Std Deviation 44.7 H, RDW Coeff of Francy 13.8, Plt Count 235, MPV 11.3, Immature Gran % (Auto) 0.700, Neut % (Auto) 78.5 H, Lymph % (Auto) 11.1 L, [place] % (Auto) 7.1, Eos % (Auto) 2.0, Baso % (Auto) 0.6, Absolute Neuts (auto) 8.1 H, Absolute Lymphs (auto) 1.15, Nucleated RBC % 0, Sodium 138, Potassium 4.0, Chloride 106, Carbon Dioxide 26.0, Anion Gap 6, BUN 13, Creatinine 1.14, Est GFR (MDRD) Af Amer 82, Est GFR (MDRD) Non-Af 68, BUN/Creatinine Ratio 11.4, Glucose 173 H, Calcium 9.2, Troponin I High Sens 30, B-Natriuretic Peptide 190.7 H 06/08/24 16:07: POC Glucose 237 H Micro: Microbiology 06/08/24 10:15 Mucosa - Nose SARS-CoV-2, Influenza & RSV (PCR) - Final 06/08/24 09:28 Mucosa - Nose SARS-CoV-2, Influenza & RSV (PCR) - Final Imaging Radiology Impression Chest X-Ray 06/08/24 10:10 IMPRESSION: At least mild interstitial pulmonary edema is newly present. Asymmetric right mid and especially lower lung airspace disease is noted; differential diagnosis includes atypical pulmonary edema and pneumonitis, superimposed. No pleural effusion or pneumothorax is seen. The cardiomediastinal silhouette is stable, without evidence of cardiomegaly. Reading Location: [address] Echocardiogram 06/08/24 12:14 Interpretation Summary The estimated ejection fraction is 55 %. Unable to assess diastolic dysfunction. Mild (1+) mitral valve insufficiency. Ordering Physician: Alberto Love Referring Physician: Delbert Castro Performed By: Paulo Covington RCS Assessment & Plan Assessment/Plan (1) Interstitial edema: PLAN: Plan 1. Acute on chronic congestive heart failure-type unknown, patient will be admitted to PCU, he will be placed on IV Lasix and have an echocardiogram performed. Patient will be monitored on telemetry #2 hypoxia secondary to #1-pulse ox will be monitored, oxygen will be weaned if possible #3 type 2 diabetes-patient's blood sugars will be monitored, sliding scale insulin will be administered as needed #4 essential hypertension-patient will remain on his home medication #5 obstructive sleep apnea-it appears per medical record patient is noncompliant with CPAP #6 chronic use of anticoagulant-patient is chronically on Eliquis, the reason appears to be paroxysmal A-fib Total clinical time spent by myself addressing the patient's medical issues, reviewing the patient's data, and collaborating with patient's care team: 75 minutes Charges/Coding Visit Charges Inpatient E&M: 64606 Init Hosp L3
[2024-06-08] MEDS: Metoprolol Tartrate 50 MG Tablet PO (21:33)
[2024-06-08] MEDS: Atorvastatin Calcium 20 MG Tablet PO (21:33)
[2024-06-08] MEDS: APIXABAN 5 MG TABLET PO (21:33)
[2024-06-08] MEDS: Doxazosin 4 MG Tablet PO (21:33)
[2024-06-08 22:02] LABS: Bedside Glucose 277 mg/dL (74-106)
[2024-06-09] VITALS (14 sets, daily range): BP systolic 134–150; BP diastolic 56–83; PULSE 50–90; RESP 16–20; TEMP 36.4–36.8; O2SAT 90–96; BMI 39.4
[2024-06-09] MEDS: Insulin Lispro 100 UNIT/ML INSULN.PEN SC ×4 (06:16→21:19)
[2024-06-09] MEDS: Furosemide 20 MG/2 ML VIAL IV ×2 (06:16→14:14)
[2024-06-09] MEDS: 0.9% Saline Lock 10 ML Syringe IV ×2 (06:17→14:14)
[2024-06-09] MEDS: Ipratropium/Albuterol Sulfate 3 ML AMPUL.NEB INHALATION ×3 (06:37→19:20)
[2024-06-09 06:54] LABS: Bedside Glucose 163 mg/dL (74-106)
[2024-06-09 07:23] LABS: Absolute Lymphocyte Count 1.13 X10^3/uL (0.83-4.51); Absolute Neutrophil Count 12.1 X10^3/uL (2.0-7.7); Basophil# 0.03 X10^3/uL; Basophil% 0.2 % (0-1); Eosinophil# 0.01 X10^3/uL; Eosinophils% 0.1 % (0-5); Hematocrit 43.5 % (40-54); Hemoglobin 14.1 g/dL (13.0-16.5); Lymphocyte # 1.13 X10^3/ul (0.83-4.51); Lymphocyte % 7.9 % (19-41); Mean Corp Hgb Conc 32.4 g/dL (32-36); Mean Corpuscular Hgb 29.7 pg (27.0-32.0); Mean Corpuscular Volume 91.6 fL (80-94); Mean Platelet Vol. 11.3 fl (6.2-12.0); Monocyte# 1.02 X10^3/uL; Monocyte% 7.1 % (0-10); NRBC Flagged by Analyzer 0 % (0-5); Neutrophil # 12.06 X10^3/uL (2.7-7.7); Platelet Count 281 K/mm3 (150-450); RBC Distribution Width CV 13.9 % (11.6-14.6); RBC Distribution Width SD 46.6 fl (35.1-43.9); Red Blood Count 4.75 M/mm3 (4.6-6.2); White Blood Count 14.4 K/mm3 (4.4-11.0)
[2024-06-09 07:51] LABS: Anion Gap 7 (5-15); BUN 17 mg/dL (7-18); BUN/Creat Ratio 12.7 RATIO (10-20); Calcium,Total 9.2 mg/dL (8.5-10.1); Chloride 103 mmol/L (98-107); Creatinine, Serum 1.34 mg/dL (0.70-1.30); EST Glomerular Filtration Rate 56 mL/min (>60); Est Glom Filt Rate - Afr Amer 68 mL/min (>60); Estimated Creatinine Clearance 75.19 ml/min; Glucose 163 mg/dL (74-106); Potassium 3.8 mmol/L (3.5-5.1); Sodium Level 137 mmol/L (136-145)
[2024-06-09] MEDS: AMLODIPINE BESYLATE PO (08:52)
[2024-06-09] MEDS: Potassium Chloride Oral Tablet 20 MEQ PO ×2 (08:52→16:08)
[2024-06-09] MEDS: BENAZEPRIL PO (08:52)
[2024-06-09] MEDS: Metoprolol Tartrate 50 MG Tablet PO ×2 (08:52→21:19)
[2024-06-09] MEDS: APIXABAN 5 MG TABLET PO ×2 (08:52→21:19)
[2024-06-09 11:38] LABS: Bedside Glucose 224 mg/dL (74-106)
[2024-06-09 16:28] LABS: Bedside Glucose 197 mg/dL (74-106)
--- NOTE | 2024-06-09 19:14 | PCM.PN.HOSP ---
Reason for Visit Reason for Visit: Diagnoses Edema, unspecified (06/08/24) Subjective Subjective Patient was seen and examined today, he states he feels better than yesterday. Patient's creatinine has bumped up slightly today I have elected to reduce the patient's IV Lasix. Patient is now on room air. Objective Data Objective Data Vital Signs: Vital Signs Temp Pulse Resp BP Pulse Ox O2 Del Method O2 Flow Rate 98.2 F 90 20 H 144/56 H 94 Room Air 2 06/09/24 14:12 06/09/24 14:19 06/09/24 14:12 06/09/24 14:12 06/09/24 14:12 06/09/24 14:19 06/09/24 08:48 Oxygen Flow Rate (L/min) 2 Oxygen Delivery Method Room Air Weight: 135.6 kg Body Mass Index (BMI) 39.4 Intake & Output: Intake and Output for Last 24 Hours 06/07/24 06/08/24 06/09/24 23:59 23:59 23:59 Intake Total 200 / 200 400 / 400 Output Total 300 / 1200 2100 / 2100 Balance -100 / -1000 -1700 / -1700 Lab / Micro Data 06/09/24 06:32 06/09/24 06:32 Labs: Laboratory Results - last 24 hr 06/08/24 21:19: POC Glucose 277 H 06/09/24 06:16: POC Glucose 163 H 06/09/24 06:32: WBC 14.4 H, RBC 4.75, Hgb 14.1, Hct 43.5, MCV 91.6, MCH 29.7, MCHC 32.4, RDW Std Deviation 46.6 H, RDW Coeff of Francy 13.9, Plt Count 281, MPV 11.3, Immature Gran % (Auto) 0.700, Neut % (Auto) 84.0 H, Lymph % (Auto) 7.9 L, Esmeralda % (Auto) 7.1, Eos % (Auto) 0.1, Baso % (Auto) 0.2, Absolute Neuts (auto) 12.1 H, Absolute Lymphs (auto) 1.13, Nucleated RBC % 0, Sodium 137, Potassium 3.8, Chloride 103, Carbon Dioxide 27.0, Anion Gap 7, BUN 17, Creatinine 1.34 H, Estim Creat Clear Calc 75.19, Est GFR (MDRD) Af Amer 68, Est GFR (MDRD) Non-Af 56 L, BUN/Creatinine Ratio 12.7, Glucose 163 H, Calcium 9.2 06/09/24 11:18: POC Glucose 224 H 06/09/24 16:02: POC Glucose 197 H Micro: Microbiology 06/08/24 10:15 Mucosa - Nose SARS-CoV-2, Influenza & RSV (PCR) - Final 06/08/24 09:28 Mucosa - Nose SARS-CoV-2, Influenza & RSV (PCR) - Final Physical Exam Narrative alert, oriented x3 and no apparent distress General Appearance: cooperative, well kempt and well developed Orientation / Consciousness: awake, oriented to person, oriented to place and oriented to time HEENT normocephalic, head/scalp atraumatic, hearing grossly normal bilaterally and moist oral mucous membranes Eyes PERRL, EOMs intact bilaterally and conjunctivae normal Neck supple, no JVD, thyroid normal and no carotid bruits General: trachea midline Resp normal respiratory effort, no retractions and no use of accessory muscles Resp Narrative: Breath sounds are distant bilaterally Auscultation: Negative for rales, rhonchi or wheezes Cardio regular rate, regular rhythm, S1 normal heart sound, S2 normal heart sound, no murmurs, no rub and no gallops GI normal to inspection, nondistended, normoactive bowel sounds, soft to palpation, non-tender and non-distended Extremity no clubbing, cyanosis or edema Skin no rashes or lesions noted General Skin Exam: no breakdown Neuro oriented x3, CN's II-XII intact bilaterally, moves all extremities, no focal motor deficits and no sensory deficits noted Sensorium / Orientation: awake and alert Speech: speech normal Psych affect normal Assessment & Plan Assessment/Plan (1) Interstitial edema: PLAN: Plan 1. Acute on chronic congestive heart failure-with normal ejection fraction-again I have elected to reduce the patient's IV Lasix, echocardiogram showed a normal EF #2 hypoxia secondary to #1-pulse ox will be monitored, patient is currently on room air #3 type 2 diabetes-patient's blood sugars will be monitored, sliding scale insulin will be administered as needed #4 essential hypertension-patient will remain on his home medication #5 obstructive sleep apnea-it appears per medical record patient is noncompliant with CPAP #6 chronic use of anticoagulant-patient is chronically on Eliquis, the reason appears to be paroxysmal A-fib Total clinical time spent by myself addressing the patient's medical issues, reviewing the patient's data, and collaborating with patient's care team: 35 minutes Charges/Coding Visit Charges Inpatient E&M: 19819 Subs Hosp L2
[2024-06-09] MEDS: Doxazosin 4 MG Tablet PO (21:19)
[2024-06-09] MEDS: Atorvastatin Calcium 20 MG Tablet PO (21:19)
[2024-06-09 22:16] LABS: Bedside Glucose 179 mg/dL (74-106)
[2024-06-10] VITALS (7 sets, daily range): BP systolic 135–161; BP diastolic 62–86; PULSE 69–90; RESP 16–18; TEMP 36.6–37.1; O2SAT 93–96; BMI 39.9
[2024-06-10 06:36] LABS: Bedside Glucose 146 mg/dL (74-106)
[2024-06-10] MEDS: Ipratropium/Albuterol Sulfate 3 ML AMPUL.NEB INHALATION (06:40)
[2024-06-10] MEDS: APIXABAN 5 MG TABLET PO (09:20)
[2024-06-10] MEDS: BENAZEPRIL PO (09:20)
[2024-06-10] MEDS: Potassium Chloride Oral Tablet 20 MEQ PO (09:20)
[2024-06-10] MEDS: Metoprolol Tartrate 50 MG Tablet PO (09:20)
[2024-06-10] MEDS: AMLODIPINE BESYLATE PO (09:20)
[2024-06-10] MEDS: Furosemide 20 MG/2 ML VIAL IV (09:22)
[2024-06-10] MEDS: Insulin Lispro 100 UNIT/ML INSULN.PEN SC (11:38)
[2024-06-10 12:00] LABS: Bedside Glucose 189 mg/dL (74-106)
--- NOTE | 2024-06-10 13:05 | DCINST_ITS ---
Discharge Instructions Diet Discharge Diet: 1800 Calorie Control Diet DC O2, CPAP, BIPAP needs RN Home O2 Qualification: Home O2 Qualification: Is the patient on home oxygen No 06/10/24 09:26 Home O2 Qualification: AT REST 1- Pulse Ox at rest 95 06/10/24 09:26 Home O2 Qualification: WITH AMBULATION 1- Pulse Ox with ambulation 93 06/10/24 09:26 1- Oxygen Flow Rate with 0 06/10/24 09:26 ambulation Home O2 Discharge instructions: No Dressing / Incision Discharge Activity: Return to Normal Activity Weight Bearing Status: Full weight bearing Follow Up Care Test Results: Test results from this visit will be discussed in further detail at your follow- up appointment, if applicable. Discharge Plan Admission Admit Date/Time: 06/08/24 12:10 Primary Reason for Your Visit: CHF with preserved ejection fraction Attending Provider: Alberto Love Primary Care Provider: Delbert Castro Discharge Orders/Prescriptions Prescriptions: New potassium chloride 20 mEq Tablet,Er Particles/Crystals 20 meq PO BIDCM Qty: 60 0RF furosemide [Lasix] 20 mg tablet 60 mg PO DAILY Qty: 90 0RF Continued apixaban 5 mg tablet 5 mg PO BID Patient Comments: Take 1 tablet by mouth twice daily. metoprolol tartrate 50 mg tablet 50 ea PO BID Patient Comments: TAKE 1 TABLET TWICE DAILY (DME) blood sugar diagnostic Strip See Rx Instructions .ROUTE .MEDSUPPLY Qty: 10 Rx Instructions: As directed multivitamin 1 EACH tablet 1 ea PO DAILY Patient Comments: vitamin doxazosin 4 MG tablet 4 mg PO QHS Patient Comments: heart/blood pressure atorvastatin 20 mg Tablet 20 mg PO QHS oxybutynin chloride 5 mg tablet 5 mg PO BID Mounjaro 2.5 mg/0.5 mL pen injector 2.5 mg subcut QWEEK amlodipine-benazepril 10-20 mg capsule 1 cap PO DAILY Referrals / Follow Up: Delbert Castro DO [Primary Care Provider] - In 1 Week Disposition Disposition (needs filled in before D/C Order can be placed): Home, Self Care
--- NOTE | 2024-06-10 13:10 | DS.PCM_ITS ---
Providers Date of Admission: 06/08/24 Date of Discharge: 06/10/24 Primary Care Physician: Dr. Delbert Castro DO Reason For Visit: CHF, HYPOXIA Diagnosis Discharge Diagnosis (1) Interstitial edema: Status: Acute Code(s): R60.9 - Edema, unspecified Plan 1. Acute on chronic congestive heart failure-with normal ejection fraction- again I have elected to reduce the patient's IV Lasix, echocardiogram showed a normal EF #2 hypoxia secondary to #1-pulse ox will be monitored, patient is currently on room air #3 type 2 diabetes-patient's blood sugars will be monitored, sliding scale insulin will be administered as needed #4 essential hypertension-patient will remain on his home medication #5 obstructive sleep apnea-it appears per medical record patient is noncompliant with CPAP #6 chronic use of anticoagulant-patient is chronically on Eliquis, the reason appears to be paroxysmal A-fib Total clinical time spent by myself addressing the patient's medical issues, reviewing the patient's data, and collaborating with patient's care team: 35 minutes Medications at Discharge Home Medications doxazosin 4 mg tablet 4 mg PO QHS Blood pressure 09/15/15 multivitamin 1 ea PO DAILY vitamin 09/15/15 apixaban 5 mg tablet 5 mg PO BID Blood thinner 12/06/19 blood sugar diagnostic #10 ea 12/06/19 metoprolol tartrate 50 mg tablet 50 ea PO BID Blood pressure 12/06/19 atorvastatin 20 mg tablet 20 mg PO QHS Cholesterol 04/30/22 amlodipine 10 mg-benazepril 20 mg capsule 1 cap PO DAILY bp 06/08/24 oxybutynin chloride 5 mg tablet 5 mg PO BID bladder 06/08/24 tirzepatide 2.5 mg/0.5 mL subcutaneous pen injector (Mounjaro) 2.5 mg subcut QWEEK 06/08/24 furosemide 20 mg tablet (Lasix) 60 mg (3 x 20 mg) PO DAILY #90 tabs 06/10/24 potassium chloride 20 mEq tablet,extended release(part/cryst) 20 meq PO BIDCM #60 tabs 06/10/24 Hospital Course Operations None Procedures 2-D Echocardiogram Summary of Care Provided Minutes Spent on Discharge: 31 Hospital Course: This 69-year-old white male was seen in the emergency room at [facility] with chief complaint of shortness of breath. When he arrived per EMS to be transported to the hospital his pulse ox was in the 70s on room air. Labs obtained in emergency room showed a normal white blood cell count, chemistry profile was remarkable for glucose of 173 and beta natruretic peptide was elevated at 190.7. Chest x-ray showed at least mild interstitial pulmonary edema. Patient was admitted to PCU and and placed on IV diuresis, echocardiogram was obtained which showed a EF of 55%. Patient's oxygen was weaned off at the time of discharge and he did not require oxygen on ambulation. On 06/10/2024, patient was seen and examined: On examination he appeared in good health and spirits. Vital signs as documented. Skin warm and dry and without overt rashes. Neck without JVD, neck was supple, trachea midline, thyroid was normal. Lungs clear bilaterally, normal air movement was noted. Heart exam notable for regular rhythm, normal sounds and absence of murmurs, rubs or gallops. Abdomen unremarkable and without evidence of organomegaly, masses, or abdominal aortic enlargement. Bowel sounds are present, abdomen is not distended. Extremities nonedematous, no cyanosis was noted, no clubbing was noted. Neuro: Cranial nerves II through XII are grossly intact, no focal motor deficits were noted, sensation to light touch and pinprick intact, motor exam 5/5 throughout. Psych: Patient is alert and oriented x3, he does not appear anxious or depressed, he does not appear agitated. Patient was discharged home in stable condition on 06/10/2024 Weight / BMI Weight Weight: 137.1 kg Body Mass Index (BMI) 39.9 ABG / Lab / Microbiology Data 06/09/24 06:32 06/09/24 06:32 Laboratory: Laboratory Results - last 24 hr 06/09/24 16:02: POC Glucose 197 H 06/09/24 21:18: POC Glucose 179 H 06/10/24 06:17: POC Glucose 146 H 06/10/24 11:37: POC Glucose 189 H Microbiology: Microbiology 06/08/24 10:15 Mucosa - Nose SARS-CoV-2, Influenza & RSV (PCR) - Final 06/08/24 09:28 Mucosa - Nose SARS-CoV-2, Influenza & RSV (PCR) - Final D/C Instructions Discharge Diet: 1800 Calorie Control Diet Weight Bearing Status: Full weight bearing DC O2, CPAP, BIPAP Needs RN Home O2 Qualification: Home O2 Qualification: Is the patient on home oxygen No 06/10/24 09:26 Home O2 Qualification: AT REST 1- Pulse Ox at rest 95 06/10/24 09:26 Home O2 Qualification: WITH AMBULATION 1- Pulse Ox with ambulation 93 06/10/24 09:26 1- Oxygen Flow Rate with 0 06/10/24 09:26 ambulation Home O2 Discharge instructions: No Meaningful Use Info Meaningful Use Meaningful Use Diagnoses (Choose all that apply): CHF CHF MIGUEL/ARB ordered at discharge?: Yes Documented LVEF (%): 55 Ischemic Stroke Statin Dosing Therapy Reference: STATIN DOSE THERAPY REFERENCE: * Patients > 75 years receive moderate or high dose statin therapy. * Patients 75 years or YOUNGER should receive HIGH intensity statin dose unless contraindicated. You will be required to document reason for non-treatment if statin daily dose does not meet guidelines. HIGH DOSE STATIN THERAPY DAILY Atorvastatin > than or = to 40 mg Rosuvastatin > than or = to 20 mg Amlodipine + Atorvastatin > than or = to 2.5/40 mg Ezetimibe + Simvastatin 10/80 mg Simvastatin 80mg Discharge Plan Admission Admit Date/Time: 06/08/24 12:10 Primary Reason for Your Visit: CHF with preserved ejection fraction Attending Provider: Alberto Love Primary Care Provider: Delbert Castro Discharge Orders/Prescriptions Prescriptions: New potassium chloride 20 mEq Tablet,Er Particles/Crystals 20 meq PO BIDCM Qty: 60 0RF furosemide [Lasix] 20 mg tablet 60 mg PO DAILY Qty: 90 0RF Continued apixaban 5 mg tablet 5 mg PO BID Patient Comments: Take 1 tablet by mouth twice daily. metoprolol tartrate 50 mg tablet 50 ea PO BID Patient Comments: TAKE 1 TABLET TWICE DAILY (DME) blood sugar diagnostic Strip See Rx Instructions .ROUTE .MEDSUPPLY Qty: 10 Rx Instructions: As directed multivitamin 1 EACH tablet 1 ea PO DAILY Patient Comments: vitamin doxazosin 4 MG tablet 4 mg PO QHS Patient Comments: heart/blood pressure atorvastatin 20 mg Tablet 20 mg PO QHS oxybutynin chloride 5 mg tablet 5 mg PO BID Mounjaro 2.5 mg/0.5 mL pen injector 2.5 mg subcut QWEEK amlodipine-benazepril 10-20 mg capsule 1 cap PO DAILY Referrals / Follow Up: Delbert Castro DO [Primary Care Provider] - In 1 Week Disposition Disposition (needs filled in before D/C Order can be placed): Home, Self Care Charges/Coding Visit Charges Inpatient E&M: 78862 Disch Hosp >30min
--- NOTE | 2024-06-10 13:39 | CASEMGMT ---
Patient has order for discharge. RN CM in to discuss needs at discharge. Patient denies needs or help at discharge. Patient had no further questions or concerns.
== END 2024-06-10 13:40 | disposition home or self-care (01) | DRG 291 ==
LOC: ED 11:48 → PCU 14:57
PROVIDERS: Admitting Provider Internal Medicine; Emergency Provider Emergency Medicine; PCP Family Medicine; Visit Provider Internal Medicine
DX: I11.0 Hypertensive heart disease with heart failure (principal); I50.33 Acute on chronic diastolic (congestive) heart failure; E11.9 Type 2 diabetes mellitus without complications; Z79.01 Long term (current) use of anticoagulants; I48.0 Paroxysmal atrial fibrillation; E78.00 Pure hypercholesterolemia, unspecified; G47.33 Obstructive sleep apnea (adult) (pediatric); Z87.891 Personal history of nicotine dependence; Z79.85 Long-term (current) use of injectable non-insulin antidiabetic drugs; Z79.899 Other long term (current) drug therapy
CPT/HCPCS: 36415; 71045; 80048; 82962; 83880; 84484; 85025; 87631; 93005; 93306; 94640; 94760; 99285; A4216; J1940

== ENCOUNTER 2024-11-11 09:54 | Emergency (ER) | payer MEDICARE, OTHER, SELFPAY ==
[2024-11-11 09:55] VITALS: BP 130/104; PULSE 65; RESP 18; TEMP 36.8; O2SAT 99; BMI 34.0
--- NOTE | 2024-11-11 10:14 | ED.VIS.CHEST ---
HPI History of Present Illness Chief Complaint: Palpitations Informant: patient Onset/Context/Timing Onset: Today Activity at onset: sudden Timing: Continuous Quality: Positive for Tightness Location: Substernal, Right Chest and Left Chest Worsened By: Nothing Relieved By: Rest Associated Symptoms: Positive for Lightheadedness and Palpitations; Negative for Nausea, Vomiting, Diaphoresis, Dyspnea, Cough, Fever or Acid Reflux Narrative Narrative: Patient presents with palpitations that began this morning when he woke up. Patient states he felt like his heart was beating hard and beating fast. Patient states he felt lightheaded. Patient states he fell into a wall but did not pass out completely. Patient states he felt some tightness in his chest. Patient states he was getting better. Patient states he saw his client evaluator for his pacemaker yesterday. Patient states that they adjusted his pacemaker yesterday. Patient checked his pulse oximeter at home. Patient noted that his heart rate was fluctuating between 50 and 118. Patient denies any shortness of breath. Patient denies any nausea or vomiting. CVD Risk Factors: Positive for Hypertension, Diabetes and Hypercholesterolemia; Negative for Family History 1' </=55 or Smoking PE Risk Factors: Negative for Recent Travel/Surgery, Recent Immobilization, Prior DVT or PE or Cancer [facility] Medical History Interstitial edema Elevated brain natriuretic peptide (BNP) level Hypoxia SOB (shortness of breath) Pacemaker Loss of hearing Wears glasses Wears dentures Cancer Arthritis Dietary restriction Hypertension History of diverticulitis Non-smoker CPAP (continuous positive airway pressure) dependence History of echocardiogram History of stress test Cardiology follow-up encounter History of cardioversion Pulmonary nodule less than 1 cm in diameter with low risk for malignant neoplasm Afib Personal history of other malignant neoplasm of kidney Pure hypercholesterolemia, unspecified history of a heart ablation Back pain Diabetes SOB (shortness of breath) History of gout Home Medications ?Medication ?Instructions ?Recorded ?Last Taken ?Type doxazosin 4 mg tablet 4 mg PO QHS Blood pressure 09/15/15 06/08/24 History multivitamin 1 ea PO DAILY vitamin 09/15/15 09/15/15 08:00 History apixaban 5 mg tablet 5 mg PO BID Blood thinner 12/06/19 06/08/24 History blood sugar diagnostic #10 ea 12/06/19 Unknown History metoprolol tartrate 50 mg tablet 50 ea PO BID Blood pressure 12/06/19 06/08/24 History atorvastatin 20 mg tablet 20 mg PO QHS Cholesterol 04/30/22 06/08/24 History amlodipine 10 mg-benazepril 20 mg 1 cap PO DAILY bp 06/08/24 06/08/24 History capsule oxybutynin chloride 5 mg tablet 5 mg PO BID bladder 06/08/24 Unknown History tirzepatide 2.5 mg/0.5 mL 2.5 mg subcut QWEEK 06/08/24 Unknown History subcutaneous pen injector (Mounjaro) furosemide 20 mg tablet (Lasix) 60 mg (3 x 20 mg) PO DAILY #90 tabs 06/10/24 Unknown Rx potassium chloride 20 mEq 20 meq PO BIDCM #60 tabs 06/10/24 Unknown Rx tablet,extended release(part/cryst) Allergy/AdvReac Type Severity Reaction Status Date / Time ciprofloxacin (From Cipro) Allergy Severe Other Verified 11/11/24 09:55 ciprofloxacin HCl (From Allergy Severe Other Verified 11/11/24 09:55 Cipro) clarithromycin (From Biaxin) Allergy Severe Other Verified 11/11/24 09:55 lisinopril Allergy Severe Other Verified 11/11/24 09:55 metronidazole Allergy Severe Other Verified 11/11/24 09:55 Family History Mother Hypertension Father Leukemia Sister Multiple sclerosis Surgical History History of transurethral resection of prostate History of left nephrectomy History of colonoscopy History of partial adrenalectomy History of prior ablation treatment Social History household members: spouse Smoking Status: Never smoker alcohol intake: never substance use type: does not use ROS ROS ED Constitutional Constitutional ED: Denies chills or fever(s) Eyes Eyes: Denies blurry vision or change in vision ENT ENT ED: Denies rhinorrhea or sore throat Cardiovascular Cardiovascular: Reports as per HPI, chest pain, palpitations and racing heartbeat Respiratory/Chest Respiratory/Chest: Denies cough or dyspnea Gastrointestinal Gastrointestinal: Denies nausea or vomiting Genitourinary Genitourinary ED: Denies dysuria or hematuria Musculoskeletal Musculoskeletal: Reports back pain; Denies neck pain Integumentary Denies abscess or rash Neurologic Neurologic: Denies headache(s) or weakness Allergic/Immunologic Allergic/Immunologic ED: Denies mouth swelling or urticaria EXAM Physical Exam Const Vital Signs: 11/11/24 09:55 11/11/24 10:22 11/11/24 10:55 Temperature 98.3 F Temperature Source Oral Pulse Rate 65 Respiratory Rate 18 Respiratory Effort Normal Non-Labored Blood Pressure 130/104 H Blood Pressure Mean 112 Pulse Ox 99 Oxygen Delivery Method Room Air Room Air 11/11/24 13:00 Temperature Temperature Source Pulse Rate 108 H Respiratory Rate 18 Respiratory Effort Blood Pressure 129/91 H Blood Pressure Mean 103 Pulse Ox 94 Oxygen Delivery Method Room Air Positive well nourished and well developed Constitutional Narrative: BMI is 34.0 General Appearance ED: well developed and NAD HEENT Reports moist mucous membranes Neck supple and no JVD Resp normal respiratory effort and clear to auscultation bilaterally Cardio regular rate and regular rhythm Rhythm: abnormal rhythm ectopic beats GI soft to palpation, non-tender and non-distended Neuro oriented x3, CN's II-XII intact bilaterally and no sensory deficits noted Sensorium / Orientation: awake and alert Motor Exam: strength 5/5 throughout Psych mental status grossly normal Heart Score History: Slightly/Non-Suspicious ECG: Nonspecific Repolarization Age: >/= 65 years Risk Factors: >/= 3 Risk Factors or History of CAD Score: 5 MDM MDM MDM Narrative Medical decision making narrative: Differential diagnosis includes cardiac dysrhythmia, cardiac ischemia, pneumonia, bronchitis, electrolyte abnormality, congestive heart failure, gastroesophageal reflux disease, and anxiety. EKG will be obtained to assess for cardiac dysrhythmia or cardiac ischemia. Chest x-ray will be obtained to assess for pneumonia, bronchitis, congestive heart failure. CBC will be obtained to assess for leukocytosis or anemia. Basic metabolic profile will be obtained to assess for electrolyte abnormality and renal function. High-sensitivity troponin will be obtained to assess for cardiac ischemia. 2-hour repeat high-sensitivity troponin will be obtained to assess for ongoing cardiac ischemia. BNP will be obtained to assess for congestive heart failure. Lab Data Attestation: I reviewed the patient's lab results. Lab results narrative: CBC was reviewed and was within normal limits. Basic metabolic profile was reviewed and was within normal limits. BNP was reviewed and was normal at 561. Initial high-sensitivity troponin was reviewed and was normal at 12. 2-hour repeat high-sensitivity troponin was reviewed and was normal at 10. Labs: Laboratory Results - last 24 hr 11/11/24 11/11/24 10:40 12:54 WBC 9.9 RBC 4.92 Hgb 14.6 Hct 43.4 MCV 88.2 MCH 29.7 MCHC 33.6 RDW Std Deviation 46.1 H RDW Coeff of Francy 14.4 Plt Count 203 MPV 10.4 Immature Gran % (Auto) 0.400 Neut % (Auto) 78.6 H Lymph % (Auto) 11.1 L [place] % (Auto) 6.4 Eos % (Auto) 2.9 Baso % (Auto) 0.6 Absolute Neuts (auto) 7.8 H Absolute Lymphs (auto) 1.10 Nucleated RBC % 0 Sodium 138 Potassium 3.9 Chloride 104 Carbon Dioxide 23.6 Anion Gap 11 BUN 15 Creatinine 1.07 Estim Creat Clear Calc 87.24 Est GFR (MDRD) Non-Af 75 BUN/Creatinine Ratio 14.3 Glucose 111 H Calcium 9.0 Troponin T High Sens 12 Troponin T Hi Sens 2 Hr 10 NT pro BNP II 561 Radiography Chest X-Ray - ED: 2 View, Read by ED Physician, Read by Radiologist and No Acute Disease Diagnostic Testing: Clinical Impression(s) from Imaging Studies Chest X-Ray 11/11/24 10:23 IMPRESSION: Hyperinflation. The lungs are clear. Reading Location: [facility] and lateral chest x-ray was obtained. There are 2 views. On my independent interpretation, lung rao are hyperinflated but clear. There is normal cardiac silhouette. Bony thorax is normal. There is no acute process noted. Radiologist also interpreted the x-ray and agrees. EKG Initial EKG: Attestation: I personally reviewed and interpreted this EKG as follows: Interpretation: Paced (94) and LBBB Comments: EKG was obtained. On my independent interpretation, it shows a paced rhythm with occasional ectopic beats. QRS interval was prolonged at 180 ms. QTc interval was prolonged at 560 ms. There is left axis deviation -33. There is a left bundle branch block pattern noted. There are no acute ST or T wave changes noted. There is no change compared to previous EKG dated 06/08/2024. Prior EKG tracings: available for review Prior: Unchanged (06/08/2024) Treatment and Re-Evaluation :: Patient was given aspirin. Patient was feeling better on reevaluation. Patient was advised of his findings. Patient was instructed to follow-up with his primary care physician in 5 to 7 days. Patient was instructed to return if worse in any way. Patient understood and was agreeable with the plan. All questions were answered. Discharge Plan Triage Chief Complaint: Palpitations ED Provider: Cesar Valladares Dx/Rx/DC Orders Clinical Impression: Lightheadedness, Diabetes Instructions: ED Dizziness, Uncertain Cause Prescriptions: No Action apixaban 5 mg tablet 5 mg PO BID Patient Comments: Take 1 tablet by mouth twice daily. metoprolol tartrate 50 mg tablet 50 ea PO BID Patient Comments: TAKE 1 TABLET TWICE DAILY (DME) blood sugar diagnostic Strip See Rx Instructions .ROUTE .MEDSUPPLY Qty: 10 Rx Instructions: As directed multivitamin 1 EACH tablet 1 ea PO DAILY Patient Comments: vitamin doxazosin 4 MG tablet 4 mg PO QHS Patient Comments: heart/blood pressure atorvastatin 20 mg Tablet 20 mg PO QHS oxybutynin chloride 5 mg tablet 5 mg PO BID Mounjaro 2.5 mg/0.5 mL pen injector 2.5 mg subcut QWEEK amlodipine-benazepril 10-20 mg capsule 1 cap PO DAILY potassium chloride 20 mEq Tablet,Er Particles/Crystals 20 meq PO BIDCM Qty: 60 0RF furosemide [Lasix] 20 mg tablet 60 mg PO DAILY Qty: 90 0RF Primary Care Provider: Delbert Castro Referrals: Delbert Castro DO [Primary Care Provider] - 3-5 Days Print Language: Stateless Disposition Disposition: Home, Self Care
--- NOTE | 2024-11-11 10:23 | RAD_ITS ---
PROCEDURE: CHEST PA AND LATERAL 11/11/2024 REASON FOR EXAM: CHEST PAIN TECHNIQUE: CHEST PA AND LATERAL COMPARISON: Prior study dated June 08, 2024. FINDINGS: Hardware: EKG electrodes are seen. A left-sided dual-chamber pacemaker is present. Heart: The heart size is normal. Mediastinum: The mediastinal contour is unremarkable. Lungs: Hyperinflation. The lungs are clear. Bones: Degenerative changes are identified within the thoracic spine. RAD/Chest PA and Lateral IMPRESSION: Hyperinflation. The lungs are clear. Reading Location: [place] [id number]
[2024-11-11 10:46] LABS: Hematocrit 43.4 % (40-54); Hemoglobin 14.6 g/dL (13.0-16.5); Immature Granulocytes Count 0.040 X10^3/uL (0.0-0.0); Mean Corp Hgb Conc 33.6 g/dL (32-36); Mean Corpuscular Volume 88.2 fL (80-94); Mean Platelet Vol. 10.4 fl (6.2-12.0); NRBC Flagged by Analyzer 0 % (0-5); Platelet Count 203 K/mm3 (150-450); RBC Distribution Width CV 14.4 % (11.6-14.6); RBC Distribution Width SD 46.1 fl (35.1-43.9); Red Blood Count 4.92 M/mm3 (4.6-6.2); White Blood Count 9.9 K/mm3 (4.4-11.0)
[2024-11-11 11:11] LABS: Anion Gap 11 (5-15); BUN 15 mg/dL (4-19); BUN/Creat Ratio 14.3 RATIO (10-20); Calcium,Total 9.0 mg/dL (7.6-11.0); Carbon Dioxide 23.6 mmol/L (21.0-32.0); Chloride 104 mmol/L (98-108); Estimated Creatinine Clearance 87.24 ml/min (50-250); Glucose 111 mg/dL (70-99); Potassium 3.9 mmol/L (3.3-5.1); Pro- Brain NATRIURETIC PEPTIDE 561 pg/mL (<=900); Troponin T High Sensitivity 12 ng/L (<=22)
[2024-11-11 13:00] VITALS: BP 129/91; PULSE 108; RESP 18; O2SAT 94
[2024-11-11 13:34] LABS: Troponin T High Sens 2 HR 10 ng/L (<=22)
[2024-11-11 14:00] VITALS: BP 132/88; PULSE 99; RESP 18; O2SAT 95
[2024-11-11 14:42] VITALS: BP 128/91; PULSE 94; RESP 18; TEMP 36.8; O2SAT 93
== END 2024-11-11 14:43 | disposition home or self-care (01) ==
PROVIDERS: Emergency Provider Emergency Medicine; PCP Family Medicine; Visit Provider Emergency Medicine
DX: R42 Dizziness and giddiness (principal); E11.9 Type 2 diabetes mellitus without complications; Z95.0 Presence of cardiac pacemaker
CPT/HCPCS: 71046; 80048; 83880; 84484; 85025; 93005; 99284; A4216